=== PATIENT | female | born 1960 | race Caucasian/White ===

== ENCOUNTER 2018-11-01 21:24 | Emergency (ER) | END 2018-11-01 23:40 | disposition left against medical advice (07) | LOC: ER 21:24 | DX: Z53.21 Procedure and treatment not carried out due to patient leaving prior to being seen by health care provider (principal) ==

== ENCOUNTER 2019-09-29 11:19 | Emergency (ER) | payer SELFPAY ==
[2019-09-29] MEDS ORDERED: CETIRIZINE 10 MG TABLET PO ONE (11:55)
[2019-09-29] MEDS ORDERED: IBUPROFEN 600 MG TABLET PO ONE (11:55)
[2019-09-29] MEDS ORDERED: ACETAMINOPHEN 325 MG TABLET PO ONE (11:55)
--- NOTE | 2019-09-29 12:10 | ER Document Report ---
HPI - HPI Time Seen by Provider: 09/29/19 11:49 Pain Level: 5 Context: Patient is a 58-year-old female who presents to the emergency department for generalized not feeling well. Patient states that she has not felt well for the past 3 days. She also had a fever yesterday. States it was 102. Patient has not received a flu vaccine this year. Patient was taking [id number] medications, but had little relief of her symptoms. - ROS Systems Reviewed and Negative: Yes All other systems reviewed and negative - CONSTITUTIONAL Constitutional: REPORTS: Chills - RESPIRATORY Respiratory: REPORTS: Trouble Breathing, Coughing - REPRODUCTIVE Reproductive: DENIES: : - MUSCULOSKELETAL Musculoskeletal: DENIES: Extremity pain - DERM Skin Color: Normal Skin Problems: None Past Medical History - Social History Smoking Status: Current Every Day Smoker Frequency of alcohol use: None Drug Abuse: None Family History: Reviewed & Not Pertinent Patient has suicidal ideation: No Patient has homicidal ideation: No Vertical Provider Document - CONSTITUTIONAL Agree With Documented VS: Yes Exam Limitations: No Limitations General Appearance: No Apparent Distress - INFECTION CONTROL TRAVEL OUTSIDE OF THE [place] IN LAST 30 DAYS: No - HEENT HEENT: Atraumatic, Normocephalic, PERRLA - RESPIRATORY Respiratory: No Respiratory Distress, Rhonchi - Right upper lobe - CARDIOVASCULAR Cardiovascular: Regular Rate, Regular Rhythm Pulses: Normal: Radial - GI/ABDOMEN Gastrointestinal: Abdomen Soft, Abdomen Non-Tender - MUSCULOSKELETAL/EXTREMETIES Musculoskeletal/Extremeties: FROM - NEURO Level of Consciousness: Awake, Alert, Appropriate Motor/Sensory: No Motor Deficit, No Sensory Deficit - DERM Integumentary: Warm, Dry, No Rash Course - Re-evaluation Re-evalutation: 09/29/19 13:20 Patient's chest x-ray shows pneumonia. Influenza test is negative. Patient will be started on doxycycline. His vital signs are normal. I have a very low suspicion for sepsis. Follow-up precautions were given. Verbal discharge instructions were given to the patient. They verbalized understanding. They are stable for discharge. - Vital Signs Vital signs: Temp Pulse Resp BP Pulse Ox 98.1 F 96 20 136/86 H 96 09/29/19 11:44 09/29/19 11:44 09/29/19 11:44 09/29/19 11:44 09/29/19 11:44 Discharge - Discharge Clinical Impression: Pneumonia Qualifiers: Pneumonia type: due to unspecified organism Laterality: right Lung location: upper lobe of lung Qualified Code(s): J18.9 - Pneumonia, unspecified organism Condition: Stable Disposition: HOME, SELF-CARE Additional Instructions: You have been diagnosed with a pneumonia. It is very important that you take all of your antibiotics until they are gone even if you are feeling better. Please return to the emergency department immediately if you began having worsening shortness of breath, become confused, have worsening pain, pass out, have persistent vomiting that prevents you from being able to drink fluids for more than 12 hours, or have any other symptoms that are worrisome to you. Please follow-up with your primary care doctor in the next 1-2 days. Prescriptions: Doxycycline Hyclate 100 mg PO BID 7 Days #14 tablet.dr Forms: Return to Work
[2019-09-29 12:38] LABS: A TYPE INFLUENZA AG NEGATIVE (NEGATIVE); B INFLUENZA AG NEGATIVE (NEGATIVE)
--- NOTE | 2019-09-29 12:49 | RADIOLOGY REPORT (SQ) ---
EXAM DESCRIPTION: CHEST 2 VIEWS COMPLETED DATE/TIME: 09/29/2019 12:13 pm REASON FOR STUDY: shortness of breath COMPARISON: PA and lateral views of the chest from 01/24/2017 EXAM PARAMETERS: NUMBER OF VIEWS: Two views. TECHNIQUE: PA and lateral views of the chest were obtained.. RADIATION DOSE: NA LIMITATIONS: none FINDINGS: LUNGS AND PLEURA: Asymmetric opacity in the right suprahilar region. There is no sizable pleural effusion or pneumo MEDIASTINUM AND HILAR STRUCTURES: No mediastinal or hilar contour abnormality. HEART AND VASCULAR STRUCTURES: The cardiac silhouette and pulmonary vasculature are within normal lee its. BONES: No acute findings. HARDWARE: None in the chest. OTHER: No other finding. IMPRESSION: Asymmetric opacity in the right suprahilar region. The opacity could represent a a righ t upper lobe pneumonia and radiographic follow-up to resolution is recommended TECHNICAL DOCUMENTATION: JOB ID: [id number] 2010 [employer]- All Rights Reserved Reading location - IP/workstation name: [email or web address]
[2019-09-29 13:43] VITALS: BP 125/85
== END 2019-09-29 13:45 | disposition home or self-care (01) ==
LOC: ER 11:19
DX: J18.9 Pneumonia, unspecified organism (principal); R50.9 Fever, unspecified; F17.200 Nicotine dependence, unspecified, uncomplicated
CPT/HCPCS: 71046; 87804; 99285

== ENCOUNTER 2019-10-29 16:56 | Emergency (ER) | payer SELFPAY ==
--- NOTE | 2019-10-29 17:27 | RADIOLOGY REPORT (SQ) ---
EXAM DESCRIPTION: CHEST SINGLE VIEW COMPLETED DATE/TIME: 10/29/2019 5:18 pm REASON FOR STUDY: cough COMPARISON: 09/29/2019 EXAM PARAMETERS: NUMBER OF VIEWS: One view. TECHNIQUE: Single frontal radiographic view of the chest acquired. RADIATION DOSE: NA LIMITATIONS: None. FINDINGS: LUNGS AND PLEURA: Increased opacification in the right upper lobe extending from the right hilum. MEDIASTINUM AND HILAR STRUCTURES: No masses. Contour normal. HEART AND VASCULAR STRUCTURES: Heart normal in size. Normal vasculature. BONES: No acute findings. HARDWARE: None in the chest. OTHER: No other significant finding. IMPRESSION: Right upper lobe pneumonia. Recommend follow-up after treatment to be certain that ther e is no hilar mass. TECHNICAL DOCUMENTATION: JOB ID: [id number] 2010 [employer]- All Rights Reserved Reading location - IP/workstation name: [email or web address]
[2019-10-29 17:43] LABS: A TYPE INFLUENZA AG NEGATIVE (NEGATIVE); B INFLUENZA AG NEGATIVE (NEGATIVE)
[2019-10-29] MEDS ORDERED: PIPERACILLIN/TAZOBACTAM 3.375 GM VIAL IV ONE (18:04)
[2019-10-29] MEDS ORDERED: VANCOMYCIN HCL INJ 1000 MG VIAL IV ONE (18:05)
--- NOTE | 2019-10-29 18:15 | ER Document Report ---
ED General - General TRAVEL OUTSIDE OF THE [place]. IN LAST 30 DAYS: No <PAO RUFF - Last Filed: 10/29/19 18:36> <JEMIMADOROTEO Muir - Last Filed: 10/29/19 20:34> - General Chief Complaint: Cough Stated Complaint: COUGH Time Seen by Provider: 10/29/19 17:45 - HPI Notes: Chief complaint: Cough and shortness of breath 58-year-old female seen here 1 month ago diagnosed with pneumonia and treated with a course of oral doxycycline which she completed now returning with increasing cough, shortness of breath weight loss and malaise. Patient smokes approximately three quarters of a pack of cigarettes per day all of her adult life. 10 pound weight loss within the last month. Yellow sputum. No hemoptysis. Denies chest pain. Progressively dyspneic on exertion. Chest x-ray from prior visit showed patchy right perihilar infiltrate. Patient denies past history of pneumonia. No regular medications. No known allergies. (PAO RUFF) - Related Data Allergies/Adverse Reactions: No Known Allergies Allergy (Verified 10/29/19 17:09) Past Medical History - General Information source: Patient - Social History Smoking Status: Current Every Day Smoker Lives with: Alone Family History: Reviewed & Not Pertinent Patient has suicidal ideation: No Patient has homicidal ideation: No <PAO RUFF - Last Filed: 10/29/19 18:36> Review of Systems <PAO RUFF - Last Filed: 10/29/19 18:36> - Review of Systems Notes: Constitutional: Subjective fever. HENT: Negative for sore throat. Eyes: Negative for visual changes. Cardiovascular: Negative for chest pain. Respiratory: As per HPI. Gastrointestinal: Negative for abdominal pain, vomiting or diarrhea. Genitourinary: Negative for dysuria. Musculoskeletal: Negative for back pain. Skin: Negative for rash. Neurological: Negative for headaches, focal weakness or numbness. 10 point ROS negative except as marked above and in HPI. (PAO RUFF) Physical Exam <PAO RUFF - Last Filed: 10/29/19 18:36> - Vital signs Vitals: Temp Pulse Resp BP Pulse Ox 98.6 F 93 19 128/75 H 99 10/29/19 17:13 10/29/19 17:13 10/29/19 17:13 10/29/19 17:13 10/29/19 17:13 - Notes Notes: GENERAL: Chronically ill-appearing female of approximately stated age with rattling cough. SKIN: Warm and mildly diaphoretic. No rashes. HEAD: Bitemporal wasting noted. EYES: PERRLA. EOMI. Conjunctivae and sclerae clear. EARS: CANALS AND TMS CLEAR. NOSE: CLEAR. MOUTH: Moist mucosa. Good dentition. No stridor or edema. No drooling. NECK: Supple. No masses or thyromegaly. No adenopathy. Carotids 2+ without bruits. No JVD. BACK: Symmetrical without tenderness. CHEST: Respirations unlabored. Rattling cough. Coarse rhonchi right upper and middle lung vyas. HEART: Regular rhythm. No murmur gallop or rub. ABDOMEN: Soft nontender without masses, organomegaly or rebound. Bowel sounds normally active. No bruits. GENITALIA: Deferred. EXTREMITIES: 2+ clubbing upper extremity nailbeds. No edema. No calf tenderness. Cap refill less than 1.5 seconds. Dorsalis pedis and posterior tibial pulses 3+ and symmetrical. NEUROLOGICAL: GCS 15. Alert and oriented x3. Fluent speech. Cranial nerves II through XII intact. Sensorimotor and cerebellar normal. Normal tone. PSYCHIATRIC: Appropriate affect. (PAO RUFF) Course <PAO RUFF - Last Filed: 10/29/19 18:36> - Laboratory Result Diagrams: 10/29/19 18:30 10/29/19 18:30 <DOROTEO TINOCO JR - Last Filed: 10/29/19 20:34> - Re-evaluation Re-evalutation: 10/29/19 18:15 This lady has had progression of pneumonia on her chest x-ray. She clearly needs further evaluation with a contrast CT of the chest which has been ordered. I am going to empirically treat her as a healthcare associated pneumonia because of recent outpatient oral antibiotics. Blood cultures are drawn. Zosyn and vancomycin IV. 10/29/19 18:[address] of the chest remain pending at this time. Further care is turned over to Dr. Tinoco and patient will be admitted after pending studies have been completed. (PAO RUFF) - Vital Signs Vital signs: Temp Pulse Resp BP Pulse Ox 98.6 F 93 19 128/75 H 99 10/29/19 17:13 10/29/19 17:13 10/29/19 17:13 10/29/19 17:13 10/29/19 17:13 - Laboratory Laboratory results interpreted by me: 10/29/19 18:30 Sodium 134.4 L Critical Care Note - Critical Care Note Total time excluding time spent on procedures (mins): 90 <DOROTEO TINOCO JR - Last Filed: 10/29/19 20:34> - Critical Care Note Comments: CT scan was read by radiologist as large right hilar mass with postobstructive with right upper lobe pneumonia. This case was discussed with Dr. michael Ellis and he advised he will see this patient in office he will call her tomorrow after receiving a text with her telephone number and birthdate and name. I discussed the findings with the patient (DOROTEO TINOCO JR) Discharge <PAO RUFF - Last Filed: 10/29/19 18:36> <DOROTEO TINOCO JR - Last Filed: 10/29/19 20:34> - Discharge Clinical Impression: Large right hilar mass on CT chest Pneumonia Qualifiers: Pneumonia type: due to unspecified organism Laterality: right Lung location: unspecified part of lung Qualified Code(s): J18.9 - Pneumonia, unspecified organism Clinical Impression: (Ruled Out): Condition: Good Disposition: HOME, SELF-CARE Additional Instructions: Follow-up with Dr. Ellis oncologist as well as your personal doctor. We will write you for Levaquin antibiotic and Tessalon Perles but because of your chest mass you will need an oncologist. Return to ER as needed. Take medicines as directed Prescriptions: Benzonatate [Tessalon Perles 100 mg Capsule] 100 mg PO Q8HP PRN #40 capsule PRN Reason: Levofloxacin [Levaquin 500 mg Tablet] 500 mg PO DAILY #10 tablet
[2019-10-29 18:52] LABS: ABSOLUTE LYMPHOCYTES (AUTO) 1.1 10^3/uL (0.5-4.7); ABSOLUTE MONOCYTES (AUTO) 0.6 10^3/uL (0.1-1.4); ABSOLUTE NEUT (AUTO) 5.8 10^3/uL (1.7-8.2); BASOPHILS % (AUTO) 0.5 % (0-2); EOSINOPHILS % (AUTO) 0.5 % (0-6); HEMATOCRIT 36.2 % (36.0-47.0); HEMOGLOBIN 12.6 g/dL (12.0-15.5); LYMPHOCYTES % (AUTO) 14.6 % (13-45); MEAN CORPUSCULAR HEMOGLOBIN 31.9 pg (27.0-33.4); MEAN CORPUSCULAR HGB CONC 34.7 g/dL (32.0-36.0); MEAN CORPUSCULAR VOLUME 92 fl (80-97); MONOCYTES % (AUTO) 8.1 % (3-13); PLATELET COUNT 284 10^3/uL (150-450); RED BLOOD COUNT 3.94 10^6/uL (3.72-5.28); RED CELL DISTRIBUTION WIDTH 11.9 % (11.5-14.0); SEGMENTED NEUTROPHILS % (AUTO) 76.3 % (42-78); TOTAL CELLS COUNTED % (AUTO) 100 %; WHITE BLOOD COUNT 7.6 10^3/uL (4.0-10.5)
[2019-10-29 19:11] LABS: ALBUMIN 3.6 g/dL (3.5-5.0); ALKALINE PHOSPHATASE 85 U/L (38-126); ASPARTATE AMINO TRANSFERASE 28 U/L (14-36); BILIRUBIN,DIRECT 0.2 mg/dL (0.0-0.4); BILIRUBIN,TOTAL 0.4 mg/dL (0.2-1.3); BLOOD UREA NITROGEN 13 mg/dL (7-20); CALCIUM 9.1 mg/dL (8.4-10.2); GLUCOSE 98 mg/dL (75-110); TOTAL PROTEIN 6.9 g/dL (6.3-8.2)
[2019-10-29 19:21] LABS: POTASSIUM 4.4 mmol/L (3.6-5.0)
[2019-10-29 19:25] LABS: ANION GAP 5 (5-19); CARBON DIOXIDE 27 mmol/L (22-30); CHLORIDE 102 mmol/L (98-107)
--- NOTE | 2019-10-29 20:08 | RADIOLOGY REPORT (SQ) ---
EXAM DESCRIPTION: CT CHEST WITH COMPLETED DATE/TIME: 10/29/2019 7:54 pm REASON FOR STUDY: Pneumonia worsening, weight loss COMPARISON: None. TECHNIQUE: CT scan of the chest performed using helical scanning technique with dynamic intravenous contrast injection. Images reviewed with lung, soft tissue and bone windows. Reconstructed coronal and sagittal MPR and MIP images reviewed. All images stored on PACS. All CT scanners at this facility use dose modulation, iterative reconstruction, and/or weight based d osing when appropriate to reduce radiation dose to as low as reasonably achievable (ALARA). [facility]: Dose Right [facility]: CareDose [facility]: Dose Right [facility]: Teradose 4D [facility]: [employer] CONTRAST TYPE AND DOSE: contrast/concentration: Isovue 350.00 mg/ml; Total Contrast Delivered: 80.0 ml; Total Saline Delivered: 54.2 ml RENAL FUNCTION: BUN 13 creatinine 0.57 RADIATION DOSE: CT Rad equipment meets quality standard of care and radiation dose reduction techniq ues were employed. CTDIvol: 4.8 mGy. DLP: 191 mGy-cm. . LIMITATIONS: None. FINDINGS: LUNGS AND PLEURA: There is dense, masslike opacification in the right upper lobe extending from the right hilum. Cannot exclude some small satellite nodules around this area. HILAR AND MEDIASTINAL STRUCTURES: There is a mass extending from the mediastinum confluent with the r ight hilum. HEART AND VASCULAR STRUCTURES: No aneurysm or dissection. No central pulmonary emboli. No pericardi al effusion. HARDWARE: None in the chest. UPPER ABDOMEN: No significant findings. Limited exam. THYROID AND OTHER SOFT TISSUES: No masses. No adenopathy. BONES: No significant finding. OTHER: No other significant finding. IMPRESSION: Large right hilar/ mediastinal mass with postobstructive pneumonia with consolidation in the right upper lobe. There may be some small pulmonary nodules in the right upper lobe. TECHNICAL DOCUMENTATION: JOB ID: [id number] Quality ID # [id number]: Final reports with documentation of one or more dose reduction techniques (e.g., Au tomated exposure control, adjustment of the mA and/or kV according to patient size, use of iterative reconstruction technique) 2010 [employer]- All Rights Reserved Reading location - IP/workstation name: [email or web address]
[2019-10-29] MEDS ORDERED: DEXAMETHASONE SOD PHOS INJ 10 MG/1 ML VIAL IV ONE (20:42)
[2019-10-29 21:26] VITALS: BP 108/67
[2019-10-29] MEDS ORDERED: ACETAMINOPHEN 325 MG TABLET PO ONE (21:31)
== END 2019-10-29 21:46 | disposition home or self-care (01) ==
LOC: ER 16:56
DX: J18.9 Pneumonia, unspecified organism (principal); R91.8 Other nonspecific abnormal finding of lung field; R05 Cough; R06.02 Shortness of breath; F17.210 Nicotine dependence, cigarettes, uncomplicated
CPT/HCPCS: 99291; 99292; 96375; 96365; 96366; 96367; 36415; 87040; 87070; 87880; 83735; 85025; 80053; 87804; 71045; 71260; J3370; J1100; J2543

== ENCOUNTER 2019-11-16 20:51 | Inpatient (IN) | payer SELFPAY ==
[2019-11-16] MEDS ORDERED: KETOROLAC TROMETHAMINE INJ/PF 30 MG/1 ML SDV IV ONE (21:06)
--- NOTE | 2019-11-16 21:09 | ER Document Report ---
ED Medical Screen (RME) - General Stated Complaint: RIGHT BREAST PAIN Time Seen by Provider: 11/16/19 21:05 Primary Care Provider: JESSICA PRESSLEY MD [Primary Care Provider] - Follow up as needed Notes: HPI: 58-year-old female presenting to the emergency department complaining of worsening right-sided chest pain. Patient states she was diagnosed with pneumonia a month ago and also with a right lung mass. Patient was placed on Augmentin but states she is still having the pain across the chest wall. No fever. States it worsened over the last 4 days. Has not had a fever in the last for 5 days. I have greeted and performed a rapid initial assessment of this patient. A comprehensive ED assessment and evaluation of the patient, analysis of test results and completion of the medical decision making process will be conducted by additional ED providers PHYSICAL EXAMINATION: With female nurse present the patient expressed a desire to expose the chest wall for examination in triage. There is no visible erythema to the chest wall on the right side. There is no definitive palpable lump but there is moderate tenderness to the upper aspect of the right breast into the lateral aspect of the right axilla. Breasts appear symmetric. Patient is not tachycardic. Lung sounds decreased in the right lung I have greeted and performed a rapid initial assessment of this patient. A comprehensive ED assessment and evaluation of the patient, analysis of test results and completion of medical decision making process will be conducted by an additional ED providers. TRAVEL OUTSIDE OF THE [place] IN LAST 30 DAYS: No - Related Data Allergies/Adverse Reactions: No Known Allergies Allergy (Verified 10/29/19 17:09) Physical Exam - Vital signs Vitals: Temp Pulse Resp BP Pulse Ox 99.5 F 104 H 16 118/73 94 11/16/19 20:54 11/16/19 20:54 11/16/19 20:54 11/16/19 20:54 11/16/19 20:54 Course - Vital Signs Vital signs: Temp Pulse Resp BP Pulse Ox 99.5 F 104 H 16 118/73 94 11/16/19 20:54 11/16/19 20:54 11/16/19 20:54 11/16/19 20:54 11/16/19 20:54 Doctor's Discharge - Discharge Referrals: JESSICA PRESSLEY MD [Primary Care Provider] - Follow up as needed
--- NOTE | 2019-11-16 22:00 | RADIOLOGY REPORT (SQ) ---
EXAM DESCRIPTION: X-RAY CHEST- One View CLINICAL HISTORY: Right-sided chest pain. COMPARISON: October 29, 2019 TECHNIQUE: Single view of the chest. FINDINGS: There is interval worsening of opacification involving the right upper and mid lung zones. There is interval retraction of the right hemidiaphragm with blunting of the right costophrenic angle. The pulmonary vascularity is normal. The cardiomediastinal silhouette is stable in size. Osseous structures are stable in appearance. IMPRESSION: Worsening of opacification involving the right upper and mid lung zones with interval blunting of the right costophrenic angle and retraction of the right hemidiaphragm.
[2019-11-16 22:30] LABS: ABSOLUTE EOSINOPHILS # (AUTO) 0.1 10^3/uL (0.0-0.6); ABSOLUTE LYMPHOCYTES (AUTO) 1.1 10^3/uL (0.5-4.7); ABSOLUTE MONOCYTES (AUTO) 0.5 10^3/uL (0.1-1.4); ABSOLUTE NEUT (AUTO) 6.5 10^3/uL (1.7-8.2); BASOPHILS % (AUTO) 0.4 % (0-2); EOSINOPHILS % (AUTO) 0.6 % (0-6); HEMATOCRIT 35.6 % (36.0-47.0); HEMOGLOBIN 12.5 g/dL (12.0-15.5); LYMPHOCYTES % (AUTO) 13.9 % (13-45); MEAN CORPUSCULAR HEMOGLOBIN 31.1 pg (27.0-33.4); MEAN CORPUSCULAR VOLUME 89 fl (80-97); MONOCYTES % (AUTO) 5.9 % (3-13); PLATELET COUNT 395 10^3/uL (150-450); RED BLOOD COUNT 4.01 10^6/uL (3.72-5.28); RED CELL DISTRIBUTION WIDTH 12.1 % (11.5-14.0); SEGMENTED NEUTROPHILS % (AUTO) 79.2 % (42-78); TOTAL CELLS COUNTED % (AUTO) 100 %; WHITE BLOOD COUNT 8.2 10^3/uL (4.0-10.5)
[2019-11-16 22:31] LABS: ALBUMIN 3.2 g/dL (3.5-5.0); ALKALINE PHOSPHATASE 83 U/L (38-126); ANION GAP 5 (5-19); ASPARTATE AMINO TRANSFERASE 28 U/L (14-36); BILIRUBIN,TOTAL 0.4 mg/dL (0.2-1.3); BLOOD UREA NITROGEN 16 mg/dL (7-20); CALCIUM 8.8 mg/dL (8.4-10.2); CARBON DIOXIDE 27 mmol/L (22-30); CHLORIDE 103 mmol/L (98-107); GLUCOSE 102 mg/dL (75-110); POTASSIUM 4.6 mmol/L (3.6-5.0); TOTAL PROTEIN 6.4 g/dL (6.3-8.2)
[2019-11-16] MEDS ORDERED: NORMAL SALINE 1000 ML 1,000 ML IV ONE (23:05)
--- NOTE | 2019-11-16 23:09 | ER Document Report ---
ED General - General Chief Complaint: Chest Pain Stated Complaint: RIGHT BREAST PAIN Time Seen by Provider: 11/16/19 21:05 Primary Care Provider: JESSICA ELLIS MD [Primary Care Provider] - Follow up as needed Mode of Arrival: Ambulatory Information source: Patient Notes: Mccrary triage note HPI: 58-year-old female presenting to the emergency department complaining of worsening right-sided chest pain. Patient states she was diagnosed with pneumonia a month ago and also with a right lung mass. Patient was placed on Augmentin but states she is still having the pain across the chest wall. No fever. States it worsened over the last 4 days. Has not had a fever in the last for 5 days. My note; 58-year-old female arrives with increasing right upper chest referred to right upper back pain. This is been going on since x3 days. Patient was diagnosed on 28 October with post obstructional pneumonia with lung mass. Patient has been taking Augmentin as written by Dr. Ellis.. Patient reports she had a 10 pound weight loss since early September when she began to have a productive persistent cough and was taking doxycycline as prescribed by her personal doctor. She had increased cough and shortness of breath and therefore saw Dr. Johnson on 28 October. I followed up on this case after Dr. Johnson left and her CT of chest revealed right hilar mass post obstructional pneumonia. I placed her on Levaquin and Tessalon Perles. She saw the oncologist as scheduled. She tried to reach him on and Sunday but were unable to reach him by phone. Patient has been a cigarette smoker throughout her life 1 pack/day. Chest x-ray today reveals a worsening of the right upper lobe pneumonia per radiology TRAVEL OUTSIDE OF THE [place] IN LAST 30 DAYS: No - HPI Onset: Just prior to arrival Onset/Duration: Sudden Quality of pain: Achy Severity: Moderate Pain Level: 2 Associated symptoms: Shortness of breath Exacerbated by: Movement, Coughing, Deep breathing Relieved by: Denies Similar symptoms previously: Yes Recently seen / treated by doctor: Yes - [facility] - Related Data Allergies/Adverse Reactions: No Known Allergies Allergy (Verified 10/29/19 17:09) Past Medical History - General Information source: Patient - Social History Smoking Status: Current Every Day Smoker Cigarette use (# per day): Yes Chew tobacco use (# tins/day): No Smoking Education Provided: Yes Frequency of alcohol use: None Drug Abuse: None Lives with: Family Family History: Reviewed & Not Pertinent Patient has suicidal ideation: No Patient has homicidal ideation: No Review of Systems - Review of Systems Constitutional: No symptoms reported EENT: No symptoms reported Cardiovascular: No symptoms reported Respiratory: No symptoms reported Gastrointestinal: No symptoms reported Genitourinary: No symptoms reported Female Genitourinary: No symptoms reported Musculoskeletal: No symptoms reported Skin: No symptoms reported Hematologic/Lymphatic: No symptoms reported Neurological/Psychological: No symptoms reported Physical Exam - Vital signs Vitals: Temp Pulse Resp BP Pulse Ox 99.5 F 104 H 16 118/73 94 11/16/19 20:54 11/16/19 20:54 11/16/19 20:54 11/16/19 20:54 11/16/19 20:54 Interpretation: Tachycardic - General General appearance: Alert - HEENT Head: Normocephalic Eyes: Normal Conjunctiva: Normal Cornea: Normal Extraocular movements intact: Yes Eyelashes: Normal Pupils: PERRL Sinus: Normal Nasal: Normal Mouth/Lips: Normal Mucous membranes: Dry Pharynx: Normal Neck: Normal - Respiratory Respiratory status: No respiratory distress Chest status: Tender - Right upper chest pain on palpation as well as right supraspinatus pain on palpation - Cardiovascular Rhythm: Tachycardia Heart sounds: Normal auscultation Murmur: No Friction rub: No Tono's crunch: No - Abdominal Inspection: Normal Distension: No distension Bowel sounds: Normal Tenderness: Nontender Organomegaly: No organomegaly - Back Back: Tender - right upper back pain on p/p - Extremities General upper extremity: Normal inspection General lower extremity: Normal inspection - Neurological Neuro grossly intact: Yes Cognition: Normal Orientation: AAOx4 [place] Coma Scale Eye Opening: Spontaneous Malina Coma Scale Verbal: Oriented Malina Coma Scale Motor: Obeys Commands [place] Coma Scale Total: 15 Speech: Normal Cranial nerves: Normal Cerebellar coordination: Normal Motor strength normal: LUE, RUE, LLE, RLE - Psychological Associated symptoms: Normal affect - Skin Skin Temperature: Warm Skin Moisture: Dry Course - Vital Signs Vital signs: Temp Pulse Resp BP Pulse Ox 99.5 F 104 H 24 H 102/76 97 11/16/19 20:54 11/16/19 20:54 11/17/19 01:00 11/17/19 00:00 11/17/19 01:00 - Laboratory Result Diagrams: 11/16/19 21:54 11/16/19 21:54 Laboratory results interpreted by me: 11/16/19 11/16/19 21:54 21:54 Hct 35.6 L Seg Neutrophils % 79.2 H Sodium 134.8 L Albumin 3.2 L - Diagnostic Test Radiology reviewed: Reports reviewed Radiology results interpreted by me: 11/17/19 01:34 See radiology note with 15 x 16 sonometer mass right upper lobe - EKG Interpretation by Me EKG shows normal: Sinus rhythm Rate: Normal Critical Care Note - Critical Care Note Total time excluding time spent on procedures (mins): 90 Comments: I discussed this case with Dr. Owusu at 0 125 and he advises he will see the patient in her room. Also went to the CT room in order to establish a radiologist read on the scan that was taken around 2300 Discharge - Discharge Clinical Impression: Mass of right lung Pneumonia Qualifiers: Pneumonia type: due to unspecified organism Laterality: right Lung location: upper lobe of lung Qualified Code(s): J18.9 - Pneumonia, unspecified organism Condition: Fair Disposition: ADMITTED INPATIENT Admitting Provider: Zoie (Hospitalist) Unit Admitted: Medical Floor Additional Instructions: Transfer patient to upstairs room Referrals: JESSICA ELLIS MD [Primary Care Provider] - Follow up as needed
[2019-11-16] MEDS ORDERED: PIPERACILLIN/TAZOBACTAM 3.375 GM VIAL IV ONE (23:22)
[2019-11-16] MEDS ORDERED: VANCOMYCIN HCL INJ 1000 MG VIAL IV ONE (23:22)
--- NOTE | 2019-11-17 01:29 | RADIOLOGY REPORT (SQ) ---
EXAM DESCRIPTION: CT CHEST ANGIOGRAPHY WITHOUT THEN WITH IV CONTRAST COMPLETED DATE/TME: 11/16/2019 23:04 CLINICAL HISTORY: 58 years Female, pain Comparison: 10/29/2019. CR, 11/16/19. Technique: IV contrast. Coronal and sagittal reformat. 3d reconstruction. This exam was performed according to our departmental dose-optimization program, which includes automated exposure control, adjustment of the mA and/or kV according to patient size and/or use of iterative reconstruction technique.[facility]: Dose Right [facility]: CareDose [facility]: Dose Right [facility]: Teradose 4D [facility]: [employer] LIMITATIONS: Quality of pulmonary arteriogram: Suboptimal. Findings: 15 x 16 x 12 cm solid enhancing consolidative mass encases and narrows the right hilar structures and involves the mediastinum. Moderate to severe mediastinal and right hilar lymphadenopathy. Right pulmonary nodules include a 0.6 cm nodule at the right lower lobe. There is significant mass effect and right hilar and mediastinal structures including severe compression of the right SVC and right pulmonary arterial branches. Moderate right pleural effusion. Likely benign, low-attenuation hepatic lesion(s) not definitively characterized. No pulmonary embolus. No right ventricular strain. Inferior neck, axillae, airway, heart, vasculature, upper abdomen, and musculoskeleton appear otherwise unremarkable. Impression: 16 cm right upper lobar and mediastinal pulmonary mass suggestive of malignancy. Right pulmonary nodule. Lymphadenopathy. There is significant mass effect and right hilar and mediastinal structures including severe compression of the right SVC and right pulmonary arterial branches. Interval worsening. Differential etiologies include infectious, inflammatory, and neoplastic processes. Consider tissue sampling and CT-PET surveillance.
[2019-11-17] MEDS ORDERED: DEXAMETHASONE SOD PHOS INJ 10 MG/1 ML VIAL IV ONE (01:34)
[2019-11-17] MEDS ORDERED: ACETAMINOPHEN 325 MG TABLET PO PRN (03:05)
[2019-11-17] MEDS ORDERED: ONDANSETRON HCL INJ/PF 4 MG/2 ML SDV IV PRN (03:05)
[2019-11-17] MEDS ORDERED: TRAMADOL HCL 50 MG TABLET PO PRN (03:05)
[2019-11-17] MEDS ORDERED: MAGNESIUM HYDROXIDE SUSP 30 ML UDCUP PO PRN (03:05)
[2019-11-17] MEDS ORDERED: IPRATROPIUM/ALBUTEROL 0.5-2.5 MG/3 ML AMPUL NEB PRN (03:05)
[2019-11-17] MEDS ORDERED: MAG HYDROX/AL HYDROX/SIMETH SUSP 30 ML UDCUP PO PRN (03:05)
[2019-11-17] MEDS ORDERED: ONDANSETRON 4 MG TAB.RAPDIS PO PRN (03:05)
[2019-11-17] MEDS ORDERED: DRONABINOL 2.5 MG CAPSULE PO PRN (03:17)
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
[2019-11-17] MEDS ORDERED: PIPERACILLIN/TAZOBACTAM 4.5 GM VIAL IV PRN (03:33)
[2019-11-17] MEDS ORDERED: NICOTINE 14 MG/24 HR PATCH.TD24 TD PRN (03:38)
[2019-11-17] MEDS: KETOROLAC TROMETHAMINE INJ/PF 30 MG/1 ML SDV IV PRN ×2 (03:56→13:07)
[2019-11-17] MEDS: NORMAL SALINE 1000 ML 1,000 ML IV PRN ×2 (03:58→13:01)
[2019-11-17] MEDS ORDERED: PIPERACILLIN/TAZOBACTAM 4.5 GM VIAL IV ONE (04:00)
[2019-11-17] MEDS: PIPERACILLIN SODIUM/TAZOBACTAM 4.5 GM in NORMAL SALINE 100 ML IV SCH ×2 (06:01→13:01)
[2019-11-17] MEDS: HEPARIN SOD (PORCINE) 5,000 UNIT/ML 1 ML VIAL SUBCUT SCH ×2 (06:01→15:09)
[2019-11-17 06:49] LABS: BLOOD UREA NITROGEN 15 mg/dL (7-20); CALCIUM 8.4 mg/dL (8.4-10.2); CHLORIDE 106 mmol/L (98-107); GLUCOSE 109 mg/dL (75-110); POTASSIUM 4.6 mmol/L (3.6-5.0)
[2019-11-17 06:54] LABS: CARBON DIOXIDE 26 mmol/L (22-30)
[2019-11-17 07:00] LABS: ANION GAP 4 (5-19)
[2019-11-17] MEDS ORDERED: DOCUSATE SODIUM 100 MG CAPSULE PO SCH (10:00)
[2019-11-17] MEDS ORDERED: FAMOTIDINE 20 MG TABLET PO SCH (10:00)
--- NOTE | 2019-11-17 12:36 | Progress Note ---
Provider Note Provider Note: Hematology/Oncology consultation was received by Dr. Mcintyre. Due to COVID-19 restrictions, I have not met this patient yet. Her chart was reviewed and I discussed her care with Nicholas in the interventional radiology department as well as Dr. Mcintyre. I do not yet have any path or definitive diagnosis of her lung tumor. Bronchoscopy with biopsy has been recommended, however, due to the location of the tumor, I do not believe that it is safe to perform this [facility]. I would recommend consulting Thoracic surgery/Pulmonary at [facility] or other tertiary center to see if they can obtain tissue biopsy for diagnosis. I do not believe her fever or infection will clear until the mass has been treated. Dr. Mcintyre agrees with recommendation for transfer. I am happy to see her at any time, but have little to offer until after tissue diagnosis is obtained.
--- NOTE | 2019-11-17 13:55 | PDOC TRANSFER SUMMARY ---
General Admission Date/PCP: 11/17/19 01:56 JESSICA PRESSLEY MD Admission Date: 11/17/19 Transfer Date: 11/17/19 Accepting Facility: [facility] Accepting Physician: Dr. Filemon Beltran Resuscitation Status: Full Code - Transfer Diagnosis (1) Mass of right lung Is this a current diagnosis for this admission?: Yes (2) Postobstructive pneumonia Is this a current diagnosis for this admission?: Yes (3) Pleuritic chest pain Is this a current diagnosis for this admission?: Yes (4) SVC syndrome Is this a current diagnosis for this admission?: Yes - Transfer Medications Home Medications: No Home Medications 11/17/19 Transfer Medications: Current Medications Acetaminophen (Tylenol 325 Mg Tablet) 650 mg PO Q4HP PRN PRN Reason: FOR PAIN OR TEMP Stop: 12/17/19 03:04 Al Hydrox/Mg Hydrox/Simethicone (Maalox Plus Susp 30 Udcup) 30 ml PO Q6HP PRN PRN Reason: HEARTBURN Stop: 12/17/19 03:04 Albuterol/Ipratropium (Duoneb 3 Ml Ampul) 3 ml NEB RTQ4HP PRN PRN Reason: SHORTNESS OF BREATH Stop: 12/17/19 03:04 Last Admin: 11/17/19 08:45 Dose: 3 ml Documented by: Docusate Sodium (Colace 100 Mg Capsule) 100 mg PO BID [facility] Stop: 12/17/19 09:59 Last Admin: 11/17/19 09:13 Dose: 100 mg Documented by: Dronabinol (Marinol 2.5 Mg Capsule) 2.5 mg PO Q6HP PRN PRN Reason: APPETITE STIMULATION Stop: 11/24/19 03:16 Famotidine (Pepcid 20 Mg Tablet) 20 mg PO Q12 [facility] Stop: 12/17/19 09:59 Last Admin: 11/17/19 09:13 Dose: 20 mg Documented by: Heparin Sodium (Porcine) (Heparin Inj 5,000 Units/Ml 1 Ml Vial) 5,000 unit S UBCUT Q8 AMA Stop: 12/17/19 05:59 Last Admin: 11/17/19 06:01 Dose: 5,000 unit Documented by: Piperacillin Sod/Tazobactam (Sod 4.5 gm/ Sodium Chloride) 100 mls @ 200 mls/hr IV Q6 AMA Stop: 11/24/19 05:59 Last Admin: 11/17/19 13:01 Dose: 200 ml/hr, 200 mls/hr Documented by: Ketorolac Tromethamine (Toradol Inj/Pf 30 Mg/1 Ml Sdv) 15 mg IV Q6HP PRN PRN Reason: FOR PAIN SCALE 3-5 Stop: 11/22/19 03:04 Last Admin: 11/17/19 13:07 Dose: 15 mg Documented by: Magnesium Hydroxide (Milk Of Magnesia 30 Ml Udcup) 30 ml PO HSP PRN PRN Reason: FOR CONSTIPATION Stop: 12/17/19 03:04 Nicotine (Nicoderm 14 Mg/24 Hr Transdermal Patch) 1 each TD DAILYP PRN PRN Reason: WITHDRAWAL SYMPTOMS Stop: 12/17/19 03:37 Last Admin: 11/17/19 06:00 Dose: 1 each Documented by: Ondansetron HCl (Zofran Inj/Pf 4 Mg/2 Ml Sdv) 4 mg IV Q4HP PRN PRN Reason: FOR NAUSEA/VOMITING Stop: 12/17/19 03:04 Ondansetron HCl (Zofran Odt 4 Mg Tablet) 4 mg PO Q4HP PRN PRN Reason: FOR NAUSEA/VOMITING Stop: 12/17/19 03:04 Sodium Chloride (Saline Flush 2.5 Ml Monoject Prefil Syrin) 2.5 ml IV Q8 [facility] Stop: 12/17/19 05:59 Last Admin: 11/17/19 06:02 Dose: Not Given Documented by: Tramadol HCl (Ultram 50 Mg Tablet) 50 mg PO Q4HP PRN PRN Reason: FOR PAIN SCALE 3-5 Stop: 11/24/19 03:04 - Allergies Allergies/Adverse Reactions: No Known Allergies Allergy (Verified 10/29/19 17:09) Hospital Course Hospital Course: Patient was admitted for evaluation of right-sided pleuritic chest pain, fever and increased shortness of breath. Chest CTA was performed which revealed a large right lung mass measuring 16 cm with severe compressive effect on the right SVC and right pulmonary artery as well as notable postobstructive pneumonia. No other infiltrates noted. Patient is stable on room air maintaining SPO2 in the high 90s. Soft blood pressures with systolic in the 90s but comfortable. Patient was started on broad-spectrum IV antibiotics for treatment of a postobstructive pneumonia. Blood cultures were obtained. Regarding patient's right lung mass, she recently learned about this finding last month and is yet to have her first meeting with her oncologist. She was scheduled to follow-up with Dr. Pressley (partners with Dr. Tse) but has not yet had her first official visit. I discussed with Dr. Tse this morning regarding plan for treatment and she informed me that patient has not had tissue biopsy yet to determine type of malignancy and this will need to be done before proceeding with radiation and chemo. Discussed with IR who recommended bronchoscopy for biopsy. Will also need to address patient's SVC syndrome. [facility] I will have our oncologist Dr. Tse reach out to the thoracic oncologist to discuss further plans for addressing patient's likely lung malignancy. Physical Exam Vital Signs: Temp Pulse Resp BP Pulse Ox 98.3 F 81 16 96/58 L 94 11/17/19 08:00 11/17/19 08:45 11/17/19 08:45 11/17/19 08:00 11/17/19 08:45 Intake & Output 11/16/19 11/17/19 11/18/19 06:59 06:59 06:59 Intake Total 1350 1240 Output Total 325 Balance 1025 1240 Weight 44 kg 44 kg General appearance: PRESENT: no acute distress, cooperative Neck exam: PRESENT: JVD - mild Respiratory exam: PRESENT: crackles, decreased breath sounds, unlabored. ABSENT: accessory muscle use, retraction, tachypnea, wheezes Cardiovascular exam: PRESENT: RRR, +S1, +S2. ABSENT: tachycardia GI/Abdominal exam: PRESENT: soft. ABSENT: rebound, rigid, tenderness Neurological exam: PRESENT: alert, awake, oriented to person, oriented to place, oriented to time, oriented to situation Results Laboratory Results: 11/16/19 21:54 11/17/19 05:36 11/16/19 11/16/19 11/17/19 21:54 21:54 05:36 WBC 8.2 RBC 4.01 Hgb 12.5 Hct 35.6 L MCV 89 MCH 31.1 MCHC 35.0 RDW 12.1 Plt Count 395 Seg Neutrophils % 79.2 H Sodium 134.8 L 135.9 L Potassium 4.6 4.6 Chloride 103 106 Carbon Dioxide 27 26 Anion Gap 5 4 L BUN 16 15 Creatinine 0.53 0.61 Est GFR ( Amer) > 60 > 60 Glucose 102 109 Calcium 8.8 8.4 Total Bilirubin 0.4 AST 28 Alkaline Phosphatase 83 Total Protein 6.4 Albumin 3.2 L Impressions: Chest X-Ray 11/16/19 21:06 IMPRESSION: Worsening of opacification involving the right upper and mid lung zones with interval blunting of the right costophrenic angle and retraction of the right hemidiaphragm. Plan Time Spent: Greater than 30 Minutes
--- NOTE | 2019-11-17 14:25 | ADVANCED CARE ---
- Diagnosis (1) Mass of right lung Diagnosis Current: Yes (2) Postobstructive pneumonia Diagnosis Current: Yes (4) SVC syndrome Diagnosis Current: Yes Attendance: Patient and myself Resuscitation Status: Full Code Discussion: We discussed patient's lung condition and the severity of her lung mass likely lung cancer which seems to be encroaching very vital structures making her high risk of serious complications including fatal bleeding if encroaches into the pulmonary artery further. Discussed that in the event of such an area where it becomes very difficult for patient to breathe, potential approach to the situation. Patient is okay with intubation in all scenarios when needed. Patient is a full code. Patient wants all needed aggressive measures to be t aking if any situation should warrant. Time Spent: 16 mins
[2019-11-17 15:39] VITALS: BP 99/65
== END 2019-11-17 15:45 | disposition short-term general hospital (02) | DRG 204 ==
LOC: ER 20:51 → EH 11-17 01:56 → 4S 11-17 03:35 → 3W 11-17 11:08
PROVIDERS: ADMIT Hospitalist; ATTEND Internal Medicine
DX: R91.8 Other nonspecific abnormal finding of lung field (principal); J18.9 Pneumonia, unspecified organism; I87.1 Compression of vein; R07.9 Chest pain, unspecified; R63.4 Abnormal weight loss; R11.2 Nausea with vomiting, unspecified; F17.210 Nicotine dependence, cigarettes, uncomplicated
CPT/HCPCS: 36415; 71046; 71275; 80048; 80053; 85025; 87040; 96361; 96365; 96375; 99291; 99292; A9270-GY; J1100; J1644; J1885; J2543; J3370; J7030; J7050; J7620

== ENCOUNTER → 2019-11-25 | Outpatient (CLI) | payer SELFPAY ==
--- NOTE | 2019-11-25 15:14 | RADIOLOGY REPORT (SQ) ---
EXAM DESCRIPTION: MRI HEAD COMBO IMAGES COMPLETED DATE/TIME: 11/25/2019 2:53 pm REASON FOR STUDY: (C34.11)MALIGNANT NEOPLASM OF UPPER LOBE, RIGHT BRONCHUS OR LUNG C34.11 MALIGNANT NEOPLASM OF UPPER LOBE, RIGHT BRONCHUS OR L COMPARISON: None. TECHNIQUE: Multiplanar imaging includes noncontrasted T1, T2, FLAIR, diffusion with ADC map and post gadolinium contrast T1 sequences. Images stored on PACS. CONTRAST TYPE AND DOSE: 10 mL Dotarem. RENAL FUNCTION: Not indicated. ACR Type II contrast agent associated with few, if any, unconfounded cases of NSF LIMITATIONS: Some sequences, particularly post-contrast, are up tube moderately limited by motion. FINDINGS: ANATOMY: No anomalies. Normal vascular flow voids. Pituitary fossa normal. CSF SPACES: Slight prominence of sulci and extra-axial fluid likely related atrophy. No hemorrhage o r mass or abnormal enhancement. CEREBRUM: Sulci and gyri normal in size and contour. Normal white matter signal on FLAIR imaging. No evidence of hemorrhage, mass, or extraaxial fluid collection. No abnormal enhancement post contrast. POSTERIOR FOSSA: No signal alteration. No hemorrhage. No edema, masses, or mass effect. Internal mick tory canals, cerebellopontine angles, mastoids normal. No enhancing lesions. No abnormal enhancement post contrast. DIFFUSION IMAGING: Negative for acute or subacute infarction. ORBITS: No masses. Globes normal. PARANASAL SINUSES: No fluid levels. Mucosa normal. OTHER: No other significant finding. IMPRESSION: 1. Moderately limited by motion. 2. No gross enhancing lesions to suggest metastatic disease. 3. Senescent changes, mild cerebral atrophy suggested. EVIDENCE OF ACUTE STROKE: NO. TECHNICAL DOCUMENTATION: JOB ID: [id number] [employer]- All Rights Reserved Reading location - IP/workstation name: [email or web address]
--- NOTE | 2019-11-25 16:14 | RADIOLOGY REPORT (SQ) ---
EXAM DESCRIPTION: PET CT SKULL/THIGH IMAGES COMPLETED DATE/TIME: 11/25/2019 3:06 pm REASON FOR STUDY: MALIGNANT NEOPLASM OF UPPER LOBE, RIGHT BRONCHUS OR LUNG C34.11 MALIGNANT NEOPLAS M OF UPPER LOBE, RIGHT BRONCHUS OR L COMPARISON: No prior pets. 11/17/2019 CT RADIONUCLIDE AND DOSE: 9.86 mCi F18 FDG The route of agent administration: Intravenous FASTING BLOOD SUGAR: 86 mg/dl CONTRAST TYPE AND DOSE: No CT contrast given. TECHNIQUE: Blood glucose level was verified. Above dose of FDG was injected intravenously. 2-D seg mented attenuation correction images were obtained from the base of the skull to the midthighs. Nonc ontrast CT images were obtained for attenuation correction and fusion with emission images. CT image s were performed without oral or intravenous contrast and are not sensitive for parenchymal lesions. A series of overlapping emission PET images were obtained. Images reviewed and manipulated at [facility] work station by the radiologist. Images stored on PACS. LIMITATIONS: None. FINDINGS: HEAD AND NECK: Hypermetabolic right supraclavicular soft tissue conglomerate measuring isabelle roximately 3.0 x 2.8 cm (series 3, image 34) (max SUV 11.3). No additional areas of abnormal uptake within the head and neck. CHEST: There is extension of the supraclavicular soft tissues within the superior anterior mediastinu m with extensive abnormal mediastinal hypermetabolic soft tissue which is poorly defined on this nonc ontrast scan (max SUV 15.2). Near complete opacification of the right upper and middle lobe with dif fuse abnormal uptake throughout (max SUV 18.5). Extensive right hilar soft tissue and avid FDG uptak e. Additional abnormal subcarinal hypermetabolic activity (max SUV 12.8) measuring approximately 3.5 x 3.6 cm. There are scattered additional foci of increased uptake within the right cardiophrenic re cess (max SUV 5.4) and along the right pleural surface. Moderate right-sided pleural effusion. Scat tered coronary atherosclerosis. ABDOMEN AND PELVIS: No areas of abnormal metabolic activity in the a bdomen or pelvis. Expected physiologic activity is present in the genitourinary system and bowel. PROXIMAL LOWER EXTREMITIES: Bony activity as below. No soft tissue areas of pathologic activity with in the visualized extremities. BONES: Scattered abnormal foci of increased uptake within multiple bones. For reference, there is a focus of increased uptake within the left scapula (max SUV 4.4), left midshaft femur (max SUV 12.1), right ilium (max SUV 5.9) and right sacrum (max SUV 4.6). Dysmorphic appearance of the right ilium l ikely related to remote trauma. Additional dysmorphic appearance of the left superior inferior pubic rami from remote trauma. ADDITIONAL CT FINDINGS: As above. OTHER: Background hepatic activity max SUV 1.9. IMPRESSION: 1. Large hypermetabolic mass predominantly involving the right upper and middle lobes w ith diffuse avid uptake (max SUV 18.5) compatible with malignancy. 2. Extensive right supraclavicular, mediastinal and right hilar hypermetabolic adenopathy compatible with metastatic disease. 3. Multifocal osseous metastatic deposits as detailed above (max SUV 12.1). 4. [id number] right-sided pleural effusion, increased from prior. TECHNICAL DOCUMENTATION: JOB ID: [id number] 2010 [employer]- All Rights Reserved Reading location - IP/workstation name: [email or web address]
== END ==
LOC: RAD 12:04
PROVIDERS: ATTEND Internal Medicine
DX: C34.11 Malignant neoplasm of upper lobe, right bronchus or lung (principal)
CPT/HCPCS: 70553; 78815; A9576; A9552

== ENCOUNTER 2019-11-26 10:53 | Outpatient (CLI) | payer SELFPAY ==
[~2019-11-26 10:53] MED LIST: ATEZOLIZUMAB 1,200 MG in NORMAL SALINE 250 ML IV PRN; CARBOPLATIN IV PRN; DEXAMETHASONE 10 MG in NS 50 ML IV PRN; ETOPOSIDE IV PRN; NORMAL SALINE 250 ML @ KVO IV PRN; NORMAL SALINE IV PRN; PALONOSETRON 0.25 MG/5 ML VIAL IV PRN
[2019-11-26 11:25] VITALS: BP 91/65
== END 2019-11-26 15:25 | disposition home or self-care (01) ==
LOC: II 10:53 → 5TH 10:56 → II 15:25
PROVIDERS: ATTEND Internal Medicine
DX: Z51.11 Encounter for antineoplastic chemotherapy (principal); C34.11 Malignant neoplasm of upper lobe, right bronchus or lung
CPT/HCPCS: 96413; 96367; 96375; 96417; J9045; J9181; J7050; J7040; J1100; J2469; J9022

== ENCOUNTER 2019-11-27 09:54 | Outpatient (CLI) | payer SELFPAY ==
[~2019-11-27 09:54] MED LIST changes: -ATEZOLIZUMAB 1,200 MG in NORMAL SALINE 250 ML IV PRN; -CARBOPLATIN IV PRN; -PALONOSETRON 0.25 MG/5 ML VIAL IV PRN
[2019-11-27 10:03] VITALS: BP 117/80
== END 2019-11-27 12:30 | disposition home or self-care (01) ==
LOC: II 09:54 → 5TH 09:57 → II 12:30
PROVIDERS: ATTEND Internal Medicine
DX: Z51.11 Encounter for antineoplastic chemotherapy (principal); C34.11 Malignant neoplasm of upper lobe, right bronchus or lung
CPT/HCPCS: 96413; 96367; J9181; J7040; J1100

== ENCOUNTER 2019-11-28 08:28 | Inpatient (IN) | payer SELFPAY ==
--- NOTE | 2019-11-28 09:17 | ER Document Report ---
ED Respiratory Problem - General Chief Complaint: Shortness Of Breath Stated Complaint: SHORTNESS OF BREATH Time Seen by Provider: 11/28/19 08:59 Notes: CHIEF COMPLAINT: Shortness of breath this morning HPI: 58-year-old female with history of metastatic stage IV lung cancer presenting for shortness of breath this morning. Patient states that she has had some shortness of breath intermittently but worse today. Patient follows with Dr. Ellis, Hematology. Patient had PET scan yesterday which showed large mass with pleural effusion in the right upper and middle lobes, metastatic bone cancer. Patient denies fever. ROS: See HPI - all other systems were reviewed and are otherwise negative Constitutional: no fever Eyes: no drainage, no blurred vision ENT: no runny nose, no sore throat Cardiovascular: no chest pain Resp: + SOB, no cough GI: no vomiting, no diarrhea, no abdominal pain : no dysuria Integumentary: no rash Allergy: no hives Musculoskeletal: no extremity pain or swelling Neurological: no numbness/tingling, no weakness MEDICATIONS: I agree with the patient medications as charted by the RN. ALLERGIES: I agree with the allergies as charted by the RN. PAST MEDICAL HISTORY/PAST SURGICAL HISTORY: Reviewed and agree as charted by RN. SOCIAL HISTORY: Reviewed and agree as charted by RN. FAMILY HISTORY: No significant familial comorbid conditions directly related to patient complaint EXAM: Reviewed vital signs as charted by RN. CONSTITUTIONAL: Alert and oriented and responds appropriately to questions. Well-appearing; well-nourished, mild distress secondary to shortness of breath HEAD: Normocephalic; atraumatic EYES: PERRL; Conjunctivae clear, sclerae non-icteric ENT: normal nose; no rhinorrhea; moist mucous membranes; pharynx without lesions noted, no uvula edema or deviation, no tonsillar hypertrophy, phonation normal NECK: Supple without meningismus; non-tender; no cervical lymphadenopathy, no masses CARD: RRR; no murmurs, no clicks, no rubs, no gallops; symmetric distal pulses RESP: Normal chest excursion without splinting. breath sounds with some rhonchi and decreased air movement in the right upper and middle lobes anterior and posterior, pulse oximetry 97% on room air not hypoxic. Patient is mildly dyspneic and mildly tachypneic ABD/GI: Normal bowel sounds; non-distended; soft, non-tender, no rebound, no guarding; no palpable organomegaly or masses. BACK: The back appears normal and is non-tender to palpation, there is no CVA tenderness EXT: Normal ROM in all joints; non-tender to palpation; no cyanosis, no effusions, no edema SKIN: Normal color for age and race; warm; dry; good turgor; no acute lesions noted NEURO: Moves all extremities equally; Motor and sensory function intact PSYCH: The patient's mood and manner are appropriate. Grooming and personal hygiene are appropriate. MDM: 58-year-old female appears mildly tachypneic and dyspneic but maintaining oxygenation by pulse ox. Will obtain screening labs, single view chest x-ray. She had PET scan yesterday that showed large mass in the right upper lobe and right middle lobe with metastasis into the bone. 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 IN LAST 30 DAYS: No - Related Data Allergies/Adverse Reactions: No Known Allergies Allergy (Verified 10/29/19 17:09) Past Medical History - Social History Smoking Status: Unknown if Ever Smoked Family History: Reviewed & Not Pertinent, CAD, Malignancy - Past Medical History Cardiac Medical History: Denies: Hx Atrial Fibrillation, Hx Coronary Artery Disease, Hx Heart Attack Pulmonary Medical History: Reports: Hx Pneumonia Denies: Hx Asthma Endocrine Medical History: Denies: Hx Diabetes Mellitus Type 2 Malignancy Medical History: Reports: Hx Lung Cancer GI Medical History: Denies: Hx Diverticulitis Musculoskeletal Medical History: Denies Hx Arthritis, Denies Hx Fibromyalgia Skin Medical History: Denies Hx Eczema, Denies Hx Psoriasis Psychiatric Medical History: Denies: Hx Depression Past Surgical History: Reports: Other - Right salpingectomy Physical Exam - Vital signs Vitals: Resp Pulse Ox 19 100 11/28/19 08:28 11/28/19 08:28 Course - Re-evaluation Re-evalutation: 11/28/19 10:26 Patient shows almost complete whiteout of the right lungs, stable effusion but increased congestion possible pneumonia likely related to an obstructive process. Likely malignant effusion, discussed with Dr. Ellis, Hematology. patient just started chemotherapy this week, on day three of Carboplatin and Etopicide. Recommends calling [facility] to discuss transfer of the patient given the shortness of breath complaint, patient's pulse oximetry is now 90% on room air will place her back on 2 L nasal cannula. 11/28/19 10:[address] Javed, Hematology at [facility]. He indicates that the size of the pleural effusion on the PET scan from 3 days ago does not support that patient would likely need transfer at this time especially with her oxygenation improving on nasal cannula. Likely needs thoracentesis and treatment for postobstructive pneumonia. I will speak with Dr. Ellis regarding our discussion. 11/28/19 10:[address] Ellis, Hematology. start Imipenum 1 gram IV now. Charge nurse have spoken with radiology they can do thoracentesis today if needed. Will speak with the hospitalist service for admission. 11/28/19 10:50 spoke with the hospitalist [facility] Case discussed with lead MD. Discussed with Dr. Colon, will accept admission. requests we schedule thoracentesis at this time if possible. - Vital Signs Vital signs: Temp Pulse Resp BP Pulse Ox 98 F 16 112/89 H 98 11/28/19 09:43 11/28/19 09:06 11/28/19 09:06 11/28/19 09:06 - Laboratory Result Diagrams: 11/28/19 09:17 11/28/19 09:17 Laboratory results interpreted by me: 11/28/19 11/28/19 09:17 09:17 RBC 3.53 L Hgb 10.6 L Hct 31.3 L [place] % (Auto) 2.6 L Seg Neutrophils % 82.8 H Sodium 136.0 L Carbon Dioxide 35 H Anion Gap 0 L BUN 25 H Total Protein 5.9 L Albumin 2.9 L Discharge - Discharge Clinical Impression: Hypoxia, Pleural effusion Metastatic lung cancer (metastasis from lung to other site) Qualifiers: Laterality: right Qualified Code(s): C34.91 - Malignant neoplasm of unspecified part of right bronchus or lung Pneumonia Qualifiers: Pneumonia type: due to unspecified organism Laterality: right Lung location: upper lobe of lung Qualified Code(s): J18.9 - Pneumonia, unspecified organism Condition: Stable Disposition: ADMITTED INPATIENT
[2019-11-28 09:34] LABS: ABSOLUTE LYMPHOCYTES (AUTO) 0.9 10^3/uL (0.5-4.7); ABSOLUTE MONOCYTES (AUTO) 0.2 10^3/uL (0.1-1.4); ABSOLUTE NEUT (AUTO) 5.4 10^3/uL (1.7-8.2); BASOPHILS % (AUTO) 0.2 % (0-2); EOSINOPHILS % (AUTO) 0.3 % (0-6); HEMATOCRIT 31.3 % (36.0-47.0); HEMOGLOBIN 10.6 g/dL (12.0-15.5); LYMPHOCYTES % (AUTO) 14.1 % (13-45); MEAN CORPUSCULAR HEMOGLOBIN 30.1 pg (27.0-33.4); MEAN CORPUSCULAR HGB CONC 33.9 g/dL (32.0-36.0); MEAN CORPUSCULAR VOLUME 89 fl (80-97); MONOCYTES % (AUTO) 2.6 % (3-13); PLATELET COUNT 327 10^3/uL (150-450); RED BLOOD COUNT 3.53 10^6/uL (3.72-5.28); RED CELL DISTRIBUTION WIDTH 12.8 % (11.5-14.0); SEGMENTED NEUTROPHILS % (AUTO) 82.8 % (42-78); TOTAL CELLS COUNTED % (AUTO) 100 %; WHITE BLOOD COUNT 6.5 10^3/uL (4.0-10.5)
[2019-11-28 09:50] LABS: INTERNATIONAL RATION (INR) 0.97; PROTHROMBIN TIME 12.9 SEC (11.4-15.4)
--- NOTE | 2019-11-28 09:50 | RADIOLOGY REPORT (SQ) ---
EXAM DESCRIPTION: CHEST SINGLE VIEW IMAGES COMPLETED DATE/TIME: 11/28/2019 9:30 am REASON FOR STUDY: sob COMPARISON: 11/16/2019 EXAM PARAMETERS: NUMBER OF VIEWS: One view. TECHNIQUE: Single frontal radiographic view of the chest acquired. RADIATION DOSE: NA LIMITATIONS: None. FINDINGS: LUNGS AND PLEURA: Complete opacification of the right upper hemithorax. There is worsenin g right basilar and perihilar consolidation. Grossly stable mild right effusion. Unremarkable left hemithorax. No pneumothorax. MEDIASTINUM AND HILAR STRUCTURES: Obscured right hilum and mediastinal contours. HEART AND VASCULAR STRUCTURES: Normal heart size. Right heart is obscured. BONES: No acute findings. HARDWARE: None in the chest. OTHER: No other significant finding. IMPRESSION: Persistent complete opacification of the right upper lobe. There has been interval incr eased right basilar and perihilar consolidation, possibly postobstructive atelectasis or pneumonia. Grossly stable mild right-sided effusion. TECHNICAL DOCUMENTATION: JOB ID: [id number] 2010 [employer]- All Rights Reserved Reading location - IP/workstation name: [email or web address]
[2019-11-28 10:02] LABS: ALBUMIN 2.9 g/dL (3.5-5.0); ALKALINE PHOSPHATASE 68 U/L (38-126); ASPARTATE AMINO TRANSFERASE 33 U/L (14-36); BILIRUBIN,TOTAL 0.2 mg/dL (0.2-1.3); BLOOD UREA NITROGEN 25 mg/dL (7-20); CALCIUM 8.5 mg/dL (8.4-10.2); CHLORIDE 101 mmol/L (98-107); GLUCOSE 87 mg/dL (75-110); POTASSIUM 4.8 mmol/L (3.6-5.0); TOTAL PROTEIN 5.9 g/dL (6.3-8.2)
[2019-11-28 10:07] LABS: CARBON DIOXIDE 35 mmol/L (22-30)
[2019-11-28 10:08] LABS: ANION GAP 0 (5-19)
[2019-11-28] MEDS ORDERED: IMIPENEM/CILASTATIN SODIUM INJ 500 MG VIAL IV ONE (10:58)
--- NOTE | 2019-11-28 14:37 | RADIOLOGY REPORT (SQ) ---
EXAM DESCRIPTION: CHEST SINGLE VIEW IMAGES COMPLETED DATE/TIME: 11/28/2019 2:27 pm REASON FOR STUDY: S/P RT THORACENTESIS COMPARISON: Same day ultrasound EXAM PARAMETERS: NUMBER OF VIEWS: One view. TECHNIQUE: Single frontal radiographic view of the chest acquired. RADIATION DOSE: NA LIMITATIONS: None. FINDINGS: LUNGS AND PLEURA: Mildly improved right basilar aeration post thoracentesis. No pneumotho rax. Unchanged extensive opacification throughout the right upper and mid hemithorax. Unremarkable left hemithorax. MEDIASTINUM AND HILAR STRUCTURES: Stable. HEART AND VASCULAR STRUCTURES: Stable. BONES: No acute findings. HARDWARE: None in the chest. OTHER: No other significant finding. IMPRESSION: Mildly improved right basilar aeration post thoracentesis. No pneumothorax. Grossly unchanged near complete opacification of the right upper and mid lung. TECHNICAL DOCUMENTATION: JOB ID: [id number] 2010 [employer]- All Rights Reserved Reading location - IP/workstation name: [email or web address]
--- NOTE | 2019-11-28 14:46 | RADIOLOGY REPORT (SQ) ---
EXAM DESCRIPTION: U/S THORACENTESIS WITH IMAGING IMAGES COMPLETED DATE/TIME: 11/28/2019 2:18 pm REASON FOR STUDY: pleural effusion, SOB COMPARISON: Same day radiograph LIMITATIONS: None. PROCEDURE: Procedure, risks, benefit, and alternative explained to patient who then gave written con sent. The posterior right chest wall was marked using ultrasound guidance. A time-out was called fo r correct marking verification. Chest prepped and draped using sterile technique. Local anesthesia a chieved using 10 ml of 1% lidocaine injection. A 6fr Safe-T- Centesis set was introduced into the [facility] pleural space. Fluid was aspirated. The catheter was removed and the entry site was covered wit h sterile bandage. No immediate complications noted. Images acquired during the procedure were stored on PACS. FINDINGS: ENTRY SITE: Posterior right chest FLUID VOLUME: 400 cc FLUID ANALYSIS: Straw-colored OTHER: Therapeutic only IMPRESSION: SUCCESSFUL THORACENTESIS USING ULTRASOUND GUIDANCE. COMMENT: Patient medication list reviewed: Yes- Quality ID# [id number]:Eligible professional attests to doc umenting in the medical record they obtained, updated, or reviewed the patient's current medications. TECHNICAL DOCUMENTATION: JOB ID: [id number] 2010 [employer]- All Rights Reserved Reading location - IP/workstation name: [email or web address]
[2019-11-28] MEDS ORDERED: IPRATROPIUM/ALBUTEROL 0.5-2.5 MG/3 ML AMPUL NEB ONE (14:51)
[2019-11-28] MEDS ORDERED: DEXAMETHASONE SOD PHOS INJ 10 MG/1 ML VIAL IV ONE (14:52)
[2019-11-28] MEDS ORDERED: IPRATROPIUM/ALBUTEROL 0.5-2.5 MG/3 ML AMPUL NEB PRN (14:59)
[2019-11-28] MEDS ORDERED: ACETAMINOPHEN 325 MG TABLET PO PRN (14:59)
[2019-11-28] MEDS ORDERED: ONDANSETRON 4 MG TAB.RAPDIS PO PRN (14:59)
[2019-11-28] MEDS ORDERED: MAGNESIUM HYDROXIDE SUSP 30 ML UDCUP PO PRN (14:59)
--- NOTE | 2019-11-28 15:04 | PDOC CRITICAL CARE PROG REPORT ---
General Date:: 11/28/19 Hospital Day:: 1 Resuscitation Status: Full Code Events in the past 12 to 24 Hours:: SOB, need for thoracentesis and probably treatment for COPD.- Review of systems relevant to events:: Respiratory Reason for ICU Addmission:: Evaluation. Seen before and after thoracentesis. - Medications: Medications reviewed and adjusted accordingly: Yes Vasopressors:: None Sedation:: None Physical Exam Vital Signs: Temp Pulse Resp BP Pulse Ox 98 F 16 112/89 H 93 11/28/19 09:43 11/28/19 09:06 11/28/19 09:06 11/28/19 09:12 General appearance: PRESENT: cooperative, mild distress, thin Head exam: PRESENT: atraumatic, normocephalic Eye exam: PRESENT: conjunctiva pink, EOMI, PERRLA. ABSENT: scleral icterus Ear exam: PRESENT: normal external ear exam Mouth exam: PRESENT: moist, tongue midline, other - Purse lip breathing Respiratory exam: PRESENT: accessory muscle use, decreased breath sounds - Decreased throughout more on R, prolonged expiratory phas Cardiovascular exam: PRESENT: RRR. ABSENT: diastolic murmur, rubs, systolic murmur GI/Abdominal exam: PRESENT: normal bowel sounds, soft. ABSENT: distended, guarding, mass, organolmegaly, rebound, tenderness Rectal exam: PRESENT: deferred Extremities exam: PRESENT: full ROM. ABSENT: calf tenderness, clubbing, pedal edema Neurological exam: PRESENT: alert, awake, oriented to person, oriented to place, oriented to time, oriented to situation, CN II-XII grossly intact. ABSENT: motor sensory deficit Psychiatric exam: PRESENT: appropriate affect, normal mood. ABSENT: homicidal ideation, suicidal ideation Skin exam: PRESENT: dry, intact, warm. ABSENT: cyanosis, rash Laboratory/Radiographs Laboratory Results: 11/28/19 09:17 11/28/19 09:17 11/28/19 11/28/19 09:17 09:17 WBC 6.5 RBC 3.53 L Hgb 10.6 L Hct 31.3 L MCV 89 MCH 30.1 MCHC 33.9 RDW 12.8 Plt Count 327 Seg Neutrophils % 82.8 H Sodium 136.0 L Potassium 4.8 Chloride 101 Carbon Dioxide 35 H Anion Gap 0 L BUN 25 H Creatinine 0.65 Est GFR ( Amer) > 60 Glucose 87 Calcium 8.5 Total Bilirubin 0.2 AST 33 Alkaline Phosphatase 68 Total Protein 5.9 L Albumin 2.9 L 11/28/19 11/28/19 09:17 09:17 Troponin I < 0.012 NT-Pro-B Natriuret Pep 601 H Impressions: Thoracentesis Ultrasound 11/28/19 00:00 IMPRESSION: SUCCESSFUL THORACENTESIS USING ULTRASOUND GUIDANCE. Chest X-Ray 11/28/19 09:12 IMPRESSION: Persistent complete opacification of the right upper lobe. There has been interval increased right basilar and perihilar consolidation, possibly postobstructive atelectasis or pneumonia. Grossly stable mild right-sided effusion. EKG: NSR All labs, radiographs, diagnostic studies and EKGs were personally reviewed: Yes In addition, reports of radiographic and diagnostic studies were read: Yes Assessment and Plan - Diagnosis (1) COPD (chronic obstructive pulmonary disease) Qualifiers: COPD type: emphysema Emphysema type: centrilobular Qualified Code(s): J43.2 - Centrilobular emphysema Is this a current diagnosis for this admission?: Yes Plan: She state "I dont have COPD, well not until this was found." My feeling is she has COPD and this needs trreatment with albuterol steroids and perhaps bipap. The onlu thing to offer is intubation which, right now, she does not need. Will reassess if this changes. (2) Metastatic lung cancer (metastasis from lung to other site) Qualifiers: Laterality: right Qualified Code(s): C34.91 - Malignant neoplasm of unspecified part of right bronchus or lung Is this a current diagnosis for this admission?: Yes Plan: This is a large St 4 tumor with resulting effusion. (3) Pleural effusion Is this a current diagnosis for this admission?: Yes Plan: Radiology drained 400cc which makes her feel better. But that is not a large ef fusion. I'll bet tumor and compressive atelectasis are bigger culprits. (4) Pneumonia Qualifiers: Pneumonia type: due to unspecified organism Laterality: right Lung location: upper lobe of lung Qualified Code(s): J18.9 - Pneumonia, unspecified organism Is this a current diagnosis for this admission?: Yes Plan: She may have a post obstructive PNA. But with no fever and WBC I do not believe this is a major finding but agree with antibiotics for now. Plan Summary: ICU not indicated at this time but if this changes reconsult. Critical Time Critical Time (minutes): 40 Level of Care: IMCU Anticipated discharge: Home Within: Other -: 1. The care of a critical patient is a dynamic process. This note is a novelties sales representative synopsis but static in nature. The timeframe for treatments given in order is not necessarily the actual time these treatments may have been done. 2. This patient requires critical care secondary to ongoing requirements for therapy not offered or safe outside the critical care environment. Transfer to a lower level of care will result in altered life or limb morbidity and mortality. 3. Multidisciplinary rounds completed. 4. ABCDE bundle addressed.
--- NOTE | 2019-11-28 15:36 | PDOC H&P ---
History of Present Illness Admission Date/PCP: 11/28/19 11:42 JULIANO CHAPMANDONALDBarb Patient complains of: Difficulty breathing and shortness of breath which started over the last 24 hours History of Present Illness: CHET DENNIS is a 58 year old female Patient presented to the emergency room with complaints of difficulty breathing and shortness of breath. She has a history of lung cancer. She was actually recently discharge on outside hospital due to acute respiratory failure. She presents here again today. She was just started on chemotherapy a few days ago. Last dose was 3 days ago. She says she was fine yesterday but woke up this morning with difficulty breathing. Patient was noted to be quite tachypneic in the emergency room. Chest x-ray noted a pleural effusion. I requested sorting livestock worker to assess patient first due to her breathing status. Nerissa taveras also had a thoracentesis done with removal of 400 mL of fluids. Patient was reevaluated by sorting livestock worker after thoracentesis and was felt that patient can be admitted to a non-ICU bed Past Medical History Cardiac Medical History: Denies: Atrial Fibrillation, Coronary Artery Disease, Myocardial Infarction Pulmonary Medical History: Reports: Pneumonia Denies: Asthma Endocrine Medical History: Denies: Diabetes Mellitus Type 2 Malignancy Medical History: Reports: Lung Cancer GI Medical History: Denies: Diverticulitis Musculoskeltal Medical History: Denies: Arthritis, Fibromyalgia Skin Medical History: Denies: Eczema, Psoriasis Psychiatric Medical History: Denies: Depression Hematology: Denies: Anemia, Bleeding Tendencies Past Surgical History Past Surgical History: Reports: Other - Right salpingectomy Social History Information Source: Patient Smoking Status: Unknown if Ever Smoked Electronic Cigarette use?: No Frequency of Alcohol Use: None Hx Recreational Drug Use: Yes Drugs: Marijuana Hx Prescription Drug Abuse: No - Advance Directive Resuscitation Status: Full Code Family History Family History: Reviewed & Not Pertinent, CAD, Malignancy Parental Family History Reviewed: No Children Family History Reviewed: Yes Sibling(s) Family History Reviewed.: Yes Medication/Allergy Home Medications: Dronabinol 5 mg PO Q12 11/28/19 Ondansetron HCl [Zofran 8 mg Tablet] 8 mg PO Q8HP PRN 11/28/19 Oxycodone HCl [Oxy-Ir 5 mg Tablet] 10 mg PO Q6HP PRN 11/28/19 Promethazine HCl [Phenergan 25 mg Tablet] 25 mg PO Q6HP PRN 11/28/19 Allergies/Adverse Reactions: No Known Allergies Allergy (Verified 10/29/19 17:09) Review of Systems ROS unobtainable: Other - Somewhat limited due to her respiratory status Constitutional: ABSENT: fever(s), headache(s) Cardiovascular: ABSENT: chest pain Respiratory: PRESENT: dyspnea Gastrointestinal: PRESENT: nausea, vomiting. ABSENT: abdominal pain, heartburn Physical Exam Vital Signs: Temp Pulse Resp BP Pulse Ox 98 F 16 112/89 H 93 11/28/19 09:43 11/28/19 09:06 11/28/19 09:06 11/28/19 09:12 General appearance: PRESENT: no acute distress, other - Chronically ill looking in mild respiratory distress with pursed lips Head exam: PRESENT: atraumatic, normocephalic Eye exam: PRESENT: conjunctiva pink, PERRLA. ABSENT: scleral icterus Ear exam: PRESENT: normal external ear exam Mouth exam: PRESENT: tongue midline Neck exam: ABSENT: carotid bruit, JVD, lymphadenopathy, thyromegaly Respiratory exam: PRESENT: decreased breath sounds, rhonchi, tachypnea, wheezes Cardiovascular exam: PRESENT: RRR, +S1, +S2. ABSENT: diastolic murmur, rubs, systolic murmur Vascular exam: PRESENT: normal capillary refill GI/Abdominal exam: PRESENT: normal bowel sounds, soft. ABSENT: distended, guarding, mass, organolmegaly, rebound, tenderness Rectal exam: PRESENT: deferred Extremities exam: PRESENT: full ROM. ABSENT: calf tenderness, clubbing, pedal edema Neurological exam: PRESENT: alert, awake, oriented to person, oriented to place, oriented to time, oriented to situation, CN II-XII grossly intact. ABSENT: motor sensory deficit Psychiatric exam: PRESENT: appropriate affect, normal mood. ABSENT: homicidal ideation, suicidal ideation Skin exam: PRESENT: dry, intact, warm. ABSENT: cyanosis, rash Results Laboratory Results: 11/28/19 09:17 11/28/19 09:17 11/28/19 11/28/19 09:17 09:17 WBC 6.5 RBC 3.53 L Hgb 10.6 L Hct 31.3 L MCV 89 MCH 30.1 MCHC 33.9 RDW 12.8 Plt Count 327 Seg Neutrophils % 82.8 H Sodium 136.0 L Potassium 4.8 Chloride 101 Carbon Dioxide 35 H Anion Gap 0 L BUN 25 H Creatinine 0.65 Est GFR ( Amer) > 60 Glucose 87 Calcium 8.5 Total Bilirubin 0.2 AST 33 Alkaline Phosphatase 68 Total Protein 5.9 L Albumin 2.9 L 11/28/19 11/28/19 09:17 09:17 Troponin I < 0.012 NT-Pro-B Natriuret Pep 601 H Impressions: Thoracentesis Ultrasound 11/28/19 00:00 IMPRESSION: SUCCESSFUL THORACENTESIS USING ULTRASOUND GUIDANCE. Chest X-Ray 11/28/19 09:12 IMPRESSION: Persistent complete opacification of the right upper lobe. There has been interval increased right basilar and perihilar consolidation, possibly postobstructive atelectasis or pneumonia. Grossly stable mild right-sided eff usion. Assessment and Plan - Diagnosis (1) Acute hypoxemic respiratory failure Is this a current diagnosis for this admission?: Yes Plan: Patient is currently on 2 L of oxygen. ABG is currently pending. She will be escalated to adjust for her hypoxemia depending on her clinical status. (2) COPD (chronic obstructive pulmonary disease) Qualifiers: COPD type: emphysema Emphysema type: centrilobular Qualified Code(s): J43.2 - Centrilobular emphysema Is this a current diagnosis for this admission?: Yes Plan: She state "I dont have COPD, well not until this was found." We will continue with steroids as well as bronchodilators (3) Metastatic lung cancer (metastasis from lung to other site) Qualifiers: Laterality: right Qualified Code(s): C34.91 - Malignant neoplasm of unspecified part of right bronchus or lung Is this a current diagnosis for this admission?: Yes Plan: This is a large Stage 4 tumor with resulting effusion. He may need further evaluation, possibly Pleurx catheter if this reaccumulate's (4) Pleural effusion Is this a current diagnosis for this admission?: Yes Plan: Radiology drained 400cc which makes her feel better. Continue with serial x- rays as needed (5) Pneumonia Qualifiers: Pneumonia type: due to unspecified organism Laterality: right Lung location: upper lobe of lung Qualified Code(s): J18.9 - Pneumonia, unspecified organism Is this a current diagnosis for this admission?: Yes Plan: She may well have a post obstructive PNA. But with no fever and WBC this is likely may be incidental. We will continue with empiric IV antibiotics for now (6) Protein calorie malnutrition Qualifiers: Protein-calorie malnutrition severity: moderate Qualified Code(s): E44.0 - Moderate protein-calorie malnutrition Is this a current diagnosis for this admission?: Yes Plan: Secondary to underlying malignancy - Time Time Spent with patient: 35 or more minutes Medications reviewed and adjusted accordingly: Yes Anticipated discharge: Home - Inpatient Certification Based on my medical assessment, after consideration of the patient's comorbidities, presenting symptoms, or acuity I expect that the services needed warrant INPATIENT care.: Yes Medical Necessity: Need for Nebulizer Therapy and Monitoring of Response, Risk of Complication if Not Cared For in Hospital
--- NOTE | 2019-11-28 17:13 | RADIOLOGY REPORT (SQ) ---
EXAM DESCRIPTION: CHEST SINGLE VIEW IMAGES COMPLETED DATE/TIME: 11/28/2019 4:52 pm REASON FOR STUDY: S/P RT THORACENTESIS COMPARISON: 11/28/2019. CT chest 11/17/2019. FINDINGS: One-view chest AP portable semi upright. Left lung remains clear. Minimally improved aeration right base. Extensive known mass occupies the upper lung field on the right. No pneumothorax appreciated. TECHNICAL DOCUMENTATION: JOB ID: [id number] Reading location - IP/workstation name: [email or web address]
[2019-11-28] MEDS: CEFEPIME 1 GM/D5W RTU 1 GM/50 ML RTUPB IV SCH (18:07)
[2019-11-28 19:35] LABS: ARTERIAL BLOOD BASE EXCESS 3.2 mmol/L; ARTERIAL BLOOD H2CO3 1.24 mmol/L (1.05-1.35); ARTERIAL BLOOD HCO3 27.5 mmol/L (20-24); ARTERIAL BLOOD O2 SATURATION 91.1 % (94-98); ARTERIAL BLOOD PCO2 41.1 mmHg (35-45); ARTERIAL BLOOD PH 7.44 (7.35-7.45); ARTERIAL BLOOD PO2 57.9 mmHg (80-100); ARTERIAL BLOOD TOTAL CO2 28.8 mmol/L (21-25)
[2019-11-28 19:38] LABS: ARTERIAL BLOOD FIO2 2L
[2019-11-28] MEDS: IPRATROPIUM/ALBUTEROL 0.5-2.5 MG/3 ML AMPUL NEB SCH (20:25)
[2019-11-28] MEDS: METHYLPREDNISOLONE INJ 40 MG/1 ML SDV IV SCH (21:05)
[2019-11-28] MEDS: OXYCODONE-ACETAMINOPHEN 5-325 MG TABLET PO PRN (21:05)
[2019-11-28] MEDS ORDERED: DRONABINOL 2.5 MG CAPSULE ONE (21:31)
[2019-11-28] MEDS ORDERED: DRONABINOL 5 MG PO SCH (22:00)
[2019-11-28] MEDS: DRONABINOL 2.5 MG CAPSULE PO SCH (22:00)
[2019-11-29] MEDS: IPRATROPIUM/ALBUTEROL 0.5-2.5 MG/3 ML AMPUL NEB SCH ×4 (01:38→20:31)
[2019-11-29 05:53] LABS: ABSOLUTE LYMPHOCYTES (AUTO) 0.3 10^3/uL (0.5-4.7); ABSOLUTE NEUT (AUTO) 4.9 10^3/uL (1.7-8.2); BASOPHILS % (AUTO) 0.4 % (0-2); HEMATOCRIT 28.5 % (36.0-47.0); LYMPHOCYTES % (AUTO) 5.3 % (13-45); MEAN CORPUSCULAR HEMOGLOBIN 30.5 pg (27.0-33.4); MEAN CORPUSCULAR HGB CONC 35.2 g/dL (32.0-36.0); MEAN CORPUSCULAR VOLUME 87 fl (80-97); MONOCYTES % (AUTO) 0.8 % (3-13); PLATELET COUNT 303 10^3/uL (150-450); RED BLOOD COUNT 3.29 10^6/uL (3.72-5.28); RED CELL DISTRIBUTION WIDTH 12.8 % (11.5-14.0); SEGMENTED NEUTROPHILS % (AUTO) 93.5 % (42-78); TOTAL CELLS COUNTED % (AUTO) 100 %; WHITE BLOOD COUNT 5.3 10^3/uL (4.0-10.5)
[2019-11-29] MEDS: CEFEPIME 1 GM/D5W RTU 1 GM/50 ML RTUPB IV SCH (06:02)
[2019-11-29] MEDS: METHYLPREDNISOLONE INJ 40 MG/1 ML SDV IV SCH (06:02)
[2019-11-29 06:17] LABS: BLOOD UREA NITROGEN 16 mg/dL (7-20); CALCIUM 8.7 mg/dL (8.4-10.2); CARBON DIOXIDE 29 mmol/L (22-30); CHLORIDE 102 mmol/L (98-107); GLUCOSE 122 mg/dL (75-110); POTASSIUM 5.1 mmol/L (3.6-5.0)
[2019-11-29 06:20] LABS: ANION GAP 5 (5-19)
[2019-11-29] MEDS: OXYCODONE-ACETAMINOPHEN 5-325 MG TABLET PO PRN ×2 (08:10→19:57)
[2019-11-29] MEDS: ENOXAPARIN SODIUM INJ 40 MG/0.4 ML DISP.SYRIN SUBCUT SCH (09:45)
[2019-11-29] MEDS: DOCUSATE SODIUM 100 MG CAPSULE PO SCH (09:45)
[2019-11-29] MEDS: DRONABINOL 2.5 MG CAPSULE PO SCH ×2 (09:57→21:26)
--- NOTE | 2019-11-29 11:14 | PDOC PROGRESS REPORT ---
Subjective Progress Note for:: 11/29/19 Reason For Visit: ACUTE RESPIRATORY FAILURE,LUNG CANCER,PNEUMONIA Patient feels better today in fact she is off oxygen and breathing is much improved. She did not require the use of BiPAP during the night Physical Exam Vital Signs: Temp Pulse Resp BP Pulse Ox 98.2 F 93 18 126/71 H 97 11/29/19 07:59 11/29/19 08:18 11/29/19 08:18 11/29/19 07:59 11/29/19 08:18 Intake & Output 11/28/19 11/29/19 11/30/19 06:59 06:59 06:59 Intake Total 766 Balance 766 Weight 44.7 kg General appearance: PRESENT: no acute distress, thin Neck exam: ABSENT: carotid bruit, tenderness Respiratory exam: PRESENT: decreased breath sounds, unlabored - A. ABSENT: tachypnea, wheezes - Diminished air entry upper lung R GI/Abdominal exam: PRESENT: normal bowel sounds, soft Rectal exam: PRESENT: deferred Neurological exam: PRESENT: alert, awake, oriented to person, oriented to place, oriented to time, oriented to situation, CN II-XII grossly intact. ABSENT: motor sensory deficit Psychiatric exam: PRESENT: appropriate affect Results Laboratory Results: 11/29/19 05:02 11/29/19 05:02 11/28/19 11/29/19 11/29/19 16:50 05:02 05:02 WBC 5.3 RBC 3.29 L Hgb 10.0 L Hct 28.5 L MCV 87 MCH 30.5 MCHC 35.2 RDW 12.8 Plt Count 303 Seg Neutrophils % 93.5 H Carbonic Acid 1.24 HCO3/H2CO3 Ratio 22:1 ABG pH 7.44 ABG pCO2 41.1 ABG pO2 57.9 L ABG HCO3 27.5 H ABG O2 Saturation 91.1 L ABG Base Excess 3.2 FiO2 2L Sodium 135.4 L Potassium 5.1 H Chloride 102 Carbon Dioxide 29 Anion Gap 5 BUN 16 Creatinine 0.50 L Est GFR ( Amer) > 60 Glucose 122 H Calcium 8.7 Magnesium 2.2 11/28/19 11/28/19 09:17 09:17 Troponin I < 0.012 NT-Pro-B Natriuret Pep 601 H Impressions: Thoracentesis Ultrasound 11/28/19 00:00 IMPRESSION: SUCCESSFUL THORACENTESIS USING ULTRASOUND GUIDANCE. Assessment and Plan - Diagnosis (1) Acute hypoxemic respiratory failure Is this a current diagnosis for this admission?: Yes Plan: Resolved, currently off Oxygen (2) COPD (chronic obstructive pulmonary disease) Qualifiers: COPD type: emphysema Emphysema type: centrilobular Qualified Code(s): J43.2 - Centrilobular emphysema Is this a current diagnosis for this admission?: Yes Plan: Improved, will change to oral Prednisone (3) Metastatic lung cancer (metastasis from lung to other site) Qualifiers: Laterality: right Qualified Code(s): C34.91 - Malignant neoplasm of unspecified part of right bronchus or lung Is this a current diagnosis for this admission?: Yes Plan: F/u as outpatient (4) Pleural effusion Is this a current diagnosis for this admission?: Yes Plan: Radiology drained 400cc which makes her feel better. Continue CXR in am Unfortunately it appears that the fluid was not sent for analysis no culture (5) Pneumonia Qualifiers: Pneumonia type: due to unspecified organism Laterality: right Lung location: upper lobe of lung Qualified Code(s): J18.9 - Pneumonia, unspecified organism Is this a current diagnosis for this admission?: Yes Plan: Little evidence of clinical pneumonia. Will change antibiotic to oral (6) Protein calorie malnutrition Qualifiers: Protein-calorie malnutrition severity: moderate Qualified Code(s): E44.0 - Moderate protein-calorie malnutrition Is this a current diagnosis for this admission?: Yes Plan: Secondary to underlying malignancy, cachexia of malignancy
[2019-11-29] MEDS: PREDNISONE 20 MG TABLET PO SCH (17:20)
[2019-11-30] MEDS: IPRATROPIUM/ALBUTEROL 0.5-2.5 MG/3 ML AMPUL NEB SCH ×2 (02:10→08:39)
[2019-11-30] MEDS: OXYCODONE-ACETAMINOPHEN 5-325 MG TABLET PO PRN (04:54)
--- NOTE | 2019-11-30 09:41 | RADIOLOGY REPORT (SQ) ---
EXAM DESCRIPTION: CHEST 2 VIEWS IMAGES COMPLETED DATE/TIME: 11/30/2019 9:24 am REASON FOR STUDY: F/u Pleural effusion COMPARISON: 11/28/2019 NUMBER OF VIEWS: Two view TECHNIQUE: Frontal and lateral radiographic images of the chest acquired. LIMITATIONS: None. FINDINGS: LUNGS AND PLEURA: Known large right upper lung mass. No pneumothorax status post right th oracentesis. Left lung is clear. MEDIASTINUM AND HILAR STRUCTURES: Stable heart size and mediastinal structures. HEART AND VASCULAR STRUCTURES: Stable appearance. BONES: No acute findings. HARDWARE: None in the chest. OTHER: No other significant finding. IMPRESSION: No significant change. No pneumothorax. TECHNICAL DOCUMENTATION: JOB ID: [id number] 2010 [employer]- All Rights Reserved Reading location - IP/workstation name: [email or web address]
[2019-11-30] MEDS ORDERED: LEVOFLOXACIN 500 MG TABLET PO SCH (10:00)
[2019-11-30] MEDS: PREDNISONE 20 MG TABLET PO SCH (10:08)
[2019-11-30] MEDS: DOCUSATE SODIUM 100 MG CAPSULE PO SCH (10:08)
[2019-11-30] MEDS: DRONABINOL 2.5 MG CAPSULE PO SCH (10:08)
[2019-11-30] MEDS: ENOXAPARIN SODIUM INJ 40 MG/0.4 ML DISP.SYRIN SUBCUT SCH (10:09)
--- NOTE | 2019-11-30 10:24 | EKG REPORT ---
SEVERITY:- OTHERWISE NORMAL ECG - SINUS RHYTHM LOW VOLTAGE IN FRONTAL LEADS : Confirmed by: Esme Nuon 30-Nov-2019 10:24:02
[2019-11-30 11:03] VITALS: BP 137/87
--- NOTE | 2019-11-30 15:55 | PDOC DISCHARGE SUMMARY ---
Impression - Admit/DC Date/PCP Admission Date/Primary Care Provider: 11/28/19 11:42 JULIANO WEBB Discharge Date: 11/30/19 - Discharge Diagnosis (1) Acute hypoxemic respiratory failure Is this a current diagnosis for this admission?: Yes (2) COPD (chronic obstructive pulmonary disease) Is this a current diagnosis for this admission?: Yes (3) Metastatic lung cancer (metastasis from lung to other site) Is this a current diagnosis for this admission?: Yes (4) Pleural effusion Is this a current diagnosis for this admission?: Yes (5) Pneumonia Is this a current diagnosis for this admission?: Yes (6) Protein calorie malnutrition Is this a current diagnosis for this admission?: Yes - Additional Information Resuscitation Status: Full Code Discharge Diet: Regular Discharge Activity: Activity As Tolerated Referrals: HARPER MCKEON MD [ACTIVE STAFF] - (FOllow up with your Oncologist as previously scheduled) Prescriptions: Ipratropium/Albuterol Sulfate [Combivent Respimat 4 gm Mdi] 1 puff IH Q6 PRN #1 aer.w.adap PRN Reason: For Wheezing Prednisone [Deltasone 20 mg Tablet] 40 mg PO DAILY #10 tablet Levofloxacin [Levaquin 500 mg Tablet] 500 mg PO DAILY #5 tablet Home Medications: Dronabinol 5 mg PO Q12 11/28/19 Ondansetron HCl [Zofran 8 mg Tablet] 8 mg PO Q8HP PRN 11/28/19 Oxycodone HCl [Oxy-Ir 5 mg Tablet] 10 mg PO Q6HP PRN 11/28/19 Promethazine HCl [Phenergan 25 mg Tablet] 25 mg PO Q6HP PRN 11/28/19 Ipratropium/Albuterol Sulfate [Combivent Respimat 4 gm Mdi] 1 puff IH Q6 PRN #1 aer.w.adap 11/30/19 Levofloxacin [Levaquin 500 mg Tablet] 500 mg PO DAILY #5 tablet 11/30/19 Prednisone [Deltasone 20 mg Tablet] 40 mg PO DAILY #10 tablet 11/30/19 History of Present Illiness History of Present Illness: CHET DENNIS is a 58 year old female Patient presented to the emergency room with complaints of difficulty breathing and shortness of breath. She has a history of lung cancer. She was actually recently discharge on outside hospital due to acute respiratory failure. She presents here again today. She was just started on chemotherapy a few days ago. Last dose was 3 days ago. She says she was fine yesterday but woke up this morning with difficulty breathing. Patient was noted to be quite tachypneic in the emergency room. Chest x-ray noted a pleural effusion. I requested renewable energy project manager to assess patient first due to her breathing status. Patient also had a thoracentesis done with removal of 400 mL of fluids. Patient was reevaluated by renewable energy project manager after thoracentesis and was felt that patient can be admitted to a non-ICU bed Hospital Course Hospital Course: Patient presented to the hospital in acute respiratory distress. She was found to have a right-sided pleural effusion. Patient has a known metastatic lung cancer. She was thought to have a possible postobstructive pneumonia however she had a normal white count and no real evidence of an acute infection. Patient had a thoracentesis done with removal of 400 mL of aspirate. Unfortunately this was not sent for analysis. Patient breathing rapidly improved after a thoracentesis and has continued to improve monitored in hospital. She was treated for possible COPD exacerbation and was also treated empirically with an antibiotic. Patient continued to improve. She has not required any oxygen assistance. She has been able to ambulate. She remains hemodynamically stable. At this time it is felt that she can be discharged home for outpatient follow-up Physical Exam Vital Signs: Temp Pulse Resp BP Pulse Ox 98.2 F 85 16 137/87 H 95 11/30/19 11:02 11/30/19 11:02 11/30/19 11:02 11/30/19 11:02 11/30/19 11:02 Intake & Output 11/29/19 11/30/19 12/01/19 06:59 06:59 06:59 Intake Total 766 1222 Balance 766 1222 Weight 44.7 kg 43.2 kg General appearance: PRESENT: no acute distress Head exam: PRESENT: atraumatic, normocephalic Eye exam: PRESENT: EOMI, PERRLA. ABSENT: scleral icterus Ear exam: PRESENT: normal external ear exam Mouth exam: PRESENT: moist, tongue midline Neck exam: ABSENT: carotid bruit, JVD, lymphadenopathy, thyromegaly Respiratory exam: PRESENT: clear to auscultation derrick, rhonchi - Few scattered. ABSENT: rales, wheezes Cardiovascular exam: PRESENT: RRR, +S1, +S2. ABSENT: diastolic murmur, rubs, systolic murmur GI/Abdominal exam: PRESENT: normal bowel sounds, soft. ABSENT: distended, guarding, mass, organolmegaly, rebound, tenderness Rectal exam: PRESENT: deferred Extremities exam: PRESENT: full ROM. ABSENT: calf tenderness, clubbing, pedal edema Neurological exam: PRESENT: alert, awake, oriented to person, oriented to place, oriented to time, oriented to situation, CN II-XII grossly intact. ABSENT: motor sensory deficit Psychiatric exam: PRESENT: appropriate affect, normal mood. ABSENT: homicidal ideation, suicidal ideation Skin exam: PRESENT: dry, intact, warm. ABSENT: cyanosis, rash Results Laboratory Results: WBC 5.3 10^3/uL (4.0-10.5) 11/29/19 05:02 RBC 3.29 10^6/uL (3.72-5.28) L 11/29/19 05:02 Hgb 10.0 g/dL (12.0-15.5) L 11/29/19 05:02 Hct 28.5 % (36.0-47.0) L 11/29/19 05:02 MCV 87 fl (80-97) 11/29/19 05:02 MCH 30.5 pg (27.0-33.4) 11/29/19 05:02 MCHC 35.2 g/dL (32.0-36.0) 11/29/19 05:02 RDW 12.8 % (11.5-14.0) 11/29/19 05:02 Plt Count 303 10^3/uL (150-450) 11/29/19 05:02 Lymph % (Auto) 5.3 % (13-45) L 11/29/19 05:02 Adams % (Auto) 0.8 % (3-13) L 11/29/19 05:02 Eos % (Auto) 0.0 % (0-6) 11/29/19 05:02 Baso % (Auto) 0.4 % (0-2) 11/29/19 05:02 Absolute Neuts (auto) 4.9 10^3/uL (1.7-8.2) 11/29/19 05:02 Absolute Lymphs (auto) 0.3 10^3/uL (0.5-4.7) L 11/29/19 05:02 Absolute Monos (auto) 0.0 10^3/uL (0.1-1.4) L 11/29/19 05:02 Absolute Eos (auto) 0.0 10^3/uL (0.0-0.6) 11/29/19 05:02 Absolute Basos (auto) 0.0 10^3/uL (0.0-0.2) 11/29/19 05:02 Seg Neutrophils % 93.5 % (42-78) H 11/29/19 05:02 PT 12.9 SEC (11.4-15.4) 11/28/19 09:17 INR 0.97 11/28/19 09:17 Carbonic Acid 1.24 mmol/L (1.05-1.35) 11/28/19 16:50 HCO3/H2CO3 Ratio 22:1 11/28/19 16:50 ABG pH 7.44 (7.35-7.45) 11/28/19 16:50 ABG pCO2 41.1 mmHg (35-45) 11/28/19 16:50 ABG pO2 57.9 mmHg (80-100) L 11/28/19 16:50 ABG HCO3 27.5 mmol/L (20-24) H 11/28/19 16:50 ABG Total CO2 28.8 mmol/L (21-25) H 11/28/19 16:50 ABG O2 Saturation 91.1 % (94-98) L 11/28/19 16:50 ABG Base Excess 3.2 mmol/L 11/28/19 16:50 FiO2 2L 11/28/19 16:50 Sodium 135.4 mmol/L (137-145) L 11/29/19 05:02 Potassium 5.1 mmol/L (3.6-5.0) H 11/29/19 05:02 Chloride 102 mmol/L (98-107) 11/29/19 05:02 Carbon Dioxide 29 mmol/L (22-30) 11/29/19 05:02 Anion Gap 5 (5-19) 11/29/19 05:02 BUN 16 mg/dL (7-20) 11/29/19 05:02 Creatinine 0.50 mg/dL (0.52-1.25) L 11/29/19 05:02 Est GFR ( Amer) > 60 (>60) 11/29/19 05:02 Est GFR (MDRD) Non-Af > 60 (>60) 11/29/19 05:02 Glucose 122 mg/dL (75-110) H 11/29/19 05:02 Calcium 8.7 mg/dL (8.4-10.2) 11/29/19 05:02 Magnesium 2.2 mg/dL (1.6-2.3) 11/29/19 05:02 Total Bilirubin 0.2 mg/dL (0.2-1.3) 11/28/19 09:17 Direct Bilirubin 0.0 mg/dL (0.0-0.4) 11/28/19 09:17 Neonat Total Bilirubin Not Reportable 11/28/19 09:17 Neonat Direct Bilirubin Not Reportable 11/28/19 09:17 Neonat Indirect Bili Not Reportable 11/28/19 09:17 AST 33 U/L (14-36) 11/28/19 09:17 ALT 14 U/L (<35) 11/28/19 09:17 Alkaline Phosphatase 68 U/L (38-126) 11/28/19 09:17 Troponin I < 0.012 ng/mL 11/28/19 09:17 NT-Pro-B Natriuret Pep 601 pg/mL (<125) H 11/28/19 09:17 Total Protein 5.9 g/dL (6.3-8.2) L 11/28/19 09:17 Albumin 2.9 g/dL (3.5-5.0) L 11/28/19 09:17 11/28/19 11/28/19 09:17 09:17 Troponin I < 0.012 NT-Pro-B Natriuret Pep 601 H Impressions: Chest X-Ray 11/28/19 00:00 IMPRESSION: Mildly improved right basilar aeration post thoracentesis. No pneumothorax. Grossly unchanged near complete opacification of the right upper and mid lung. Thoracentesis Ultrasound 11/28/19 00:00 IMPRESSION: SUCCESSFUL THORACENTESIS USING ULTRASOUND GUIDANCE. Chest X-Ray 11/28/19 09:12 IMPRESSION: Persistent complete opacification of the right upper lobe. There has been interval increased right basilar and perihilar consolidation, possibly postobstructive atelectasis or pneumonia. Grossly stable mild right-sided effusion. Chest X-Ray 11/30/19 08:00 IMPRESSION: No significant change. No pneumothorax. Plan Health Concerns: Follow-up with oncologist as per pre-hospitalization Time Spent: Less than 30 Minutes Stroke Is this a Stroke Patient?: No Acute Heart Failure - Is this a Heart Failure Patient?: No
== END 2019-11-30 11:46 | disposition home or self-care (01) | DRG 186 ==
LOC: ER 08:28 → EH 11:42 → ICU 16:19 → 3S 17:36
PROVIDERS: ADMIT Internal Medicine; ATTEND Internal Medicine
PROC: 0W993ZZ Drainage of Right Pleural Cavity, Percutaneous Approach (ICD-10-PCS; principal; 2019-11-28)
DX: J90 Pleural effusion, not elsewhere classified (principal); J96.01 Acute respiratory failure with hypoxia; J18.9 Pneumonia, unspecified organism; C79.51 Secondary malignant neoplasm of bone; E44.0 Moderate protein-calorie malnutrition; C78.01 Secondary malignant neoplasm of right lung; C34.92 Malignant neoplasm of unspecified part of left bronchus or lung; R64 Cachexia; J43.2 Centrilobular emphysema
CPT/HCPCS: 32555; 36415; 36600; 71045; 71046; 80048; 80053; 82803; 83735; 83880; 84484; 85025; 85610; 87040; 93005; 93010; 94640; 94660; 99285; A9270-GY; J0692; J0743; J1100; J1650; J2920; J7512; J7620; S0119

== ENCOUNTER 2019-12-04 10:26 | Outpatient (CLI) | payer SELFPAY ==
[~2019-12-04 10:26] MED LIST changes: -DEXAMETHASONE 10 MG in NS 50 ML IV PRN; +DEXAMETHASONE SOD PHOSPHATE 10 MG in NORMAL SALINE 50 ML IV PRN; -NORMAL SALINE 250 ML @ KVO IV PRN; +NORMAL SALINE 250 ML IV PRN
[2019-12-04 10:48] VITALS: BP 82/55
[2019-12-04 10:55] LABS: ABSOLUTE EOSINOPHILS # (AUTO) 0.1 10^3/uL (0.0-0.6); ABSOLUTE LYMPHOCYTES (AUTO) 0.8 10^3/uL (0.5-4.7); ABSOLUTE MONOCYTES (AUTO) 0.3 10^3/uL (0.1-1.4); BASOPHILS % (AUTO) 0.3 % (0-2); EOSINOPHILS % (AUTO) 1.1 % (0-6); HEMATOCRIT 28.8 % (36.0-47.0); HEMOGLOBIN 10.2 g/dL (12.0-15.5); LYMPHOCYTES % (AUTO) 15.2 % (13-45); MEAN CORPUSCULAR HEMOGLOBIN 30.1 pg (27.0-33.4); MEAN CORPUSCULAR HGB CONC 35.4 g/dL (32.0-36.0); MEAN CORPUSCULAR VOLUME 85 fl (80-97); MONOCYTES % (AUTO) 5.6 % (3-13); PLATELET COUNT 192 10^3/uL (150-450); RED BLOOD COUNT 3.38 10^6/uL (3.72-5.28); RED CELL DISTRIBUTION WIDTH 12.8 % (11.5-14.0); SEGMENTED NEUTROPHILS % (AUTO) 77.8 % (42-78); TOTAL CELLS COUNTED % (AUTO) 100 %; WHITE BLOOD COUNT 5.1 10^3/uL (4.0-10.5)
== END 2019-12-04 12:24 | disposition home or self-care (01) ==
LOC: II 10:26 → 5TH 10:32 → II 12:24
PROVIDERS: ATTEND Internal Medicine
DX: Z51.11 Encounter for antineoplastic chemotherapy (principal); C34.11 Malignant neoplasm of upper lobe, right bronchus or lung
CPT/HCPCS: 36415; 85025; 96413; 96367; J9181; J7040; J1100

== ENCOUNTER 2019-12-24 08:18 | Outpatient (CLI) | payer SELFPAY ==
[~2019-12-24 08:18] MED LIST changes: +ATEZOLIZUMAB 1,200 MG in NORMAL SALINE 250 ML IV PRN; +CARBOPLATIN IV PRN; +DENOSUMAB INJ/PF 120 MG/1.7 ML SDV SUBCUT PRN; +PALONOSETRON 0.25 MG/5 ML SDV IV PRN
[2019-12-24 08:26] VITALS: BP 109/72
[2019-12-24] MEDS ORDERED: DENOSUMAB 120 MG in SYRINGE, DISPOSABLE, 1 EACH SUBCUT PRN (09:36)
== END 2019-12-24 12:15 | disposition home or self-care (01) ==
LOC: II 08:18 → 5TH 08:21 → II 12:15
PROVIDERS: ATTEND Internal Medicine Hematology & Oncology
DX: Z51.11 Encounter for antineoplastic chemotherapy (principal); C34.11 Malignant neoplasm of upper lobe, right bronchus or lung; C79.51 Secondary malignant neoplasm of bone
CPT/HCPCS: 96413; 96367; 96372; 96375; 96417; J9045; J9181; J7050; J7040; J3490; J1100; J0897; J2469; J9022

== ENCOUNTER 2019-12-25 10:04 | Outpatient (CLI) | payer SELFPAY ==
[~2019-12-25 10:04] MED LIST changes: -ATEZOLIZUMAB 1,200 MG in NORMAL SALINE 250 ML IV PRN; -CARBOPLATIN IV PRN; -DENOSUMAB INJ/PF 120 MG/1.7 ML SDV SUBCUT PRN; -PALONOSETRON 0.25 MG/5 ML SDV IV PRN
[2019-12-25 10:17] VITALS: BP 99/72
== END 2019-12-25 12:28 | disposition home or self-care (01) ==
LOC: II 10:04 → 5TH 10:06 → II 12:28
PROVIDERS: ATTEND Internal Medicine Hematology & Oncology
DX: Z51.11 Encounter for antineoplastic chemotherapy (principal); C34.11 Malignant neoplasm of upper lobe, right bronchus or lung
CPT/HCPCS: 96413; 96367; J9181; J7040; J1100

== ENCOUNTER 2019-12-26 10:07 | Outpatient (CLI) | payer SELFPAY ==
[2019-12-26 10:16] VITALS: BP 92/77
== END 2019-12-26 12:01 | disposition home or self-care (01) ==
LOC: II 10:07 → 5TH 10:08 → II 12:01
PROVIDERS: ATTEND Internal Medicine Hematology & Oncology
DX: Z51.11 Encounter for antineoplastic chemotherapy (principal); C34.11 Malignant neoplasm of upper lobe, right bronchus or lung
CPT/HCPCS: 96413; 96367; J9181; J7040; J1100

== ENCOUNTER → 2020-01-09 | Outpatient (CLI) | payer SELFPAY ==
--- NOTE | 2020-01-09 09:33 | RADIOLOGY REPORT (SQ) ---
EXAM DESCRIPTION: CT CHEST WITH IMAGES COMPLETED DATE/TIME: 01/09/2020 8:20 am REASON FOR STUDY: LUNG CA (C34.11) C34.11 MALIGNANT NEOPLASM OF UPPER LOBE, RIGHT BRONCHUS OR L COMPARISON: CTs of the chest from 11/17/2019 and 10/29/2019. TECHNIQUE: CT scan of the chest performed using helical scanning technique with dynamic intravenous contrast injection. Images reviewed with lung, soft tissue and bone windows. Reconstructed coronal and sagittal MPR and MIP images reviewed. All images stored on PACS. All CT scanners at this facility use dose modulation, iterative reconstruction, and/or weight based d osing when appropriate to reduce radiation dose to as low as reasonably achievable (ALARA). [facility]: Dose Right [facility]: CareDose [facility]: Dose Right [facility]: Teradose 4D [facility]: [employer] CONTRAST TYPE AND DOSE: 50 mL Omnipaque 350- low osmolar. RENAL FUNCTION: Creatinine 0.5 milligrams/deciliter. LIMITATIONS: None. FINDINGS: LUNGS AND PLEURA: There is re- demonstration of abrupt truncation of the right superior lo bar bronchus. The heterogeneous mass in the right upper lobe that encases the hilar structures and e xtends to the pleura has decreased in size. The degree of mass effect of the mass upon the SVC has d ecreased. There is a 3 mm nodule in the right lower lobe (image 57 of series 6) that has also decrea sed in size (it measured 4 mm on the prior CT). The ill-defined nodular opacity in the posterior medi al aspect of the right lower lobe has in turn increased in size and it measures 18 x 11 mm compared t o 8 x 6 mm on the 11/17/2019 CT. There is no pleural effusion or pneumothorax. HILAR AND MEDIASTINAL STRUCTURES: The confluent mediastinal and hilar adenopathy has decreased in siz e ; for reference the sub- carinal lymph node on image 24 of series 2 measures 14 mm in short axis di ameter compared to 25 mm on the prior CT. 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 There is no thoracic aortic dissection. The thoracic ascending thoracic aorta measures 3.2 x 3.1 cm in trans verse diameter. There is no thoracic aortic dissection. There is mild atherosclerotic calcification of the coronary arteries. There is no cardiomegaly or pericardial effusion. HARDWARE: None in the chest. UPPER ABDOMEN: Refer to the separate report of the CT of the abdomen. THYROID AND OTHER SOFT TISSUES: The enlarged lymph nodes in the right supraclavicular fossa (images 3 and 9 of series 2) have also decreased in size ; for reference the right supraclavicular lymph node on image 3 of series 2 measures 17 mm in short axis diameter compared to 22 mm on the prior CT. BONES: No fracture or osseous lesion. OTHER: No other finding. IMPRESSION: 1. Interim decrease in the size of the right upper lobe mass and hilar, mediastinal and supraclavicular adenopathy. 2. Interim decrease in the size of the nodule in the right lower lobe (image 57 of series 6). 3. The ill-defined nodular opacity in the posteromedial aspect of the right lower lobe (image 55 of series 6) has increased in size, however compared to the CT from 11/17/2027 the opacity is more hetero geneous and less masslike. TECHNICAL DOCUMENTATION: JOB ID: [id number] Quality ID # [id number]: Final reports with documentation of one or more dose reduction techniques (e.g., Au tomated exposure control, adjustment of the mA and/or kV according to patient size, use of iterative reconstruction technique) 2010 [employer]- All Rights Reserved Reading location - IP/workstation name: [email or web address]
--- NOTE | 2020-01-09 09:56 | RADIOLOGY REPORT (SQ) ---
EXAM DESCRIPTION: CT ABD/PELVIS WITH IV ONLY IMAGES COMPLETED DATE/TIME: 01/09/2020 8:20 am REASON FOR STUDY: LUNG CA (C34.11) C34.11 MALIGNANT NEOPLASM OF UPPER LOBE, RIGHT BRONCHUS OR L COMPARISON: PET from 11/25/2019. TECHNIQUE: CT scan of the abdomen and pelvis performed using helical scanning technique with dynamic intravenous contrast injection. No oral contrast. Images reviewed with lung, soft tissue, and bone windows. Reconstructed coronal and sagittal MPR images reviewed. Delayed images for evaluation of the urinary system also acquired. All images stored on PACS. All CT scanners at this facility use dose modulation, iterative reconstruction, and/or weight based d osing when appropriate to reduce radiation dose to as low as reasonably achievable (ALARA). [facility]: Dose Right [facility]: CareDose [facility]: Dose Right [facility]: Teradose 4D [facility]: Admaxim CONTRAST TYPE AND DOSE: Contrast/concentration: Isovue 350.00 mg/ml; Total Contrast Delivered: 50.0 ml; Total Saline Delivered: 65.0 ml RENAL FUNCTION: Creatinine 0.65 milligrams/deciliter. RADIATION DOSE: CT Rad equipment meets quality standard of care and radiation dose reduction techniq ues were employed. CTDIvol: 4.4 - 4.5 mGy. DLP: 572 mGy-cm. LIMITATIONS: None. FINDINGS: LOWER CHEST: Refer to the separate report of the CT of the chest. LIVER: The morphology of the liver is noncirrhotic. There are multiple subcentimeter hypodense hepat ic lesions that are stable in size and number compared to the PET from 11/25/2019 ; in addition, the l esions demonstrated no abnormal FDG uptake on the correlative PET. The portal veins are patent. SPLEEN: No splenomegaly or splenic mass. PANCREAS: No acute abnormality of the pancreas. GALLBLADDER: No abnormality that is apparent on CT. ADRENAL GLANDS: No mass or asymmetry. RIGHT KIDNEY AND URETER: No solid mass, hydronephrosis, nephrolithiasis, hydroureter or ureterolithia sis. LEFT KIDNEY AND URETER: No solid mass, hydronephrosis, nephrolithiasis, hydroureter or ureterolithias is. AORTA AND VESSELS: No aneurysm of the abdominal aorta. The abdominopelvic vasculature is patent. RETROPERITONEUM: No retroperitoneal adenopathy, hemorrhage or mass. BOWEL AND PERITONEAL CAVITY: No bowel obstruction, bowel wall thickening or pericolonic/ perienteric inflammation. No mesenteric adenopathy, free intraperitoneal fluid or mesenteric/ omental inflammati on. APPENDIX: Unable to identify the appendix. There is no pericecal inflammation. PELVIS: There is no abnormality of the uterus or adnexa that is apparent on CT. The urinary bladder is distended and normal in appearance. ABDOMINAL WALL: No mass or hernia. BONES: Chronic fractures of the right ilium, right inferior pubic ramus and left inferior and superio r pubic rami. There is a Schmorl's node along the superior endplate of the L5 vertebral body. There is no lytic or sclerotic osseous lesion. OTHER: No other finding. IMPRESSION: No acute intra-abdominal abnormality. The subcentimeter hypodense hepatic lesions descr ibed above are unchanged in size and number compared to the PET from 11/25/2019 and based on the fact that the lesions demonstrated no abnormal FDG uptake on the correlative PET are favored to represent cysts. Continued attention on follow-up CTs is recommended. TECHNICAL DOCUMENTATION: JOB ID: [id number] Quality ID # [id number]: Final reports with documentation of one or more dose reduction techniques (e.g., Au tomated exposure control, adjustment of the mA and/or kV according to patient size, use of iterative reconstruction technique) 2010 [employer]- All Rights Reserved Reading location - IP/workstation name: [email or web address]
== END ==
LOC: RAD 07:52
PROVIDERS: ATTEND Physician Assistant Medical
DX: C34.11 Malignant neoplasm of upper lobe, right bronchus or lung (principal)
CPT/HCPCS: 71260; 74177

== ENCOUNTER 2020-01-14 08:21 | Outpatient (CLI) | payer SELFPAY ==
[~2020-01-14 08:21] MED LIST changes: +ATEZOLIZUMAB 1,200 MG in NORMAL SALINE 250 ML IV PRN; +CARBOPLATIN IV PRN; +DEXAMETHASONE 10 MG in NS 50 ML IV PRN; -DEXAMETHASONE SOD PHOSPHATE 10 MG in NORMAL SALINE 50 ML IV PRN; +NORMAL SALINE 250 ML @ KVO IV PRN; -NORMAL SALINE 250 ML IV PRN; +PALONOSETRON 0.25 MG/5 ML VIAL IV PRN
[2020-01-14 08:30] VITALS: BP 91/61
== END 2020-01-14 12:08 | disposition home or self-care (01) ==
LOC: II 08:21 → 5TH 08:49 → II 12:08
PROVIDERS: ATTEND Internal Medicine Hematology & Oncology
DX: Z51.11 Encounter for antineoplastic chemotherapy (principal); C34.11 Malignant neoplasm of upper lobe, right bronchus or lung
CPT/HCPCS: 96413; 96367; 96375; 96417; J9045; J9181; J7050; J7040; J1100; J2469; J9022

== ENCOUNTER 2020-01-15 09:46 | Outpatient (CLI) | payer SELFPAY ==
[~2020-01-15 09:46] MED LIST changes: -ATEZOLIZUMAB 1,200 MG in NORMAL SALINE 250 ML IV PRN; -CARBOPLATIN IV PRN; -PALONOSETRON 0.25 MG/5 ML VIAL IV PRN
[2020-01-15 09:55] VITALS: BP 107/76
== END 2020-01-15 11:30 | disposition home or self-care (01) ==
LOC: II 09:46 → 5TH 09:49 → II 11:30
PROVIDERS: ATTEND Internal Medicine
DX: Z51.11 Encounter for antineoplastic chemotherapy (principal); C34.11 Malignant neoplasm of upper lobe, right bronchus or lung
CPT/HCPCS: 96413; 96367; J9181; J7040; J1100

== ENCOUNTER 2020-01-16 09:54 | Outpatient (CLI) | payer SELFPAY ==
[2020-01-16 10:53] VITALS: BP 114/67
== END 2020-01-16 12:30 | disposition home or self-care (01) ==
LOC: II 09:54 → 5TH 09:57 → II 12:30
PROVIDERS: ATTEND Internal Medicine
DX: Z51.11 Encounter for antineoplastic chemotherapy (principal); C34.11 Malignant neoplasm of upper lobe, right bronchus or lung
CPT/HCPCS: 96413; 96367; J9181; J7040; J1100

== ENCOUNTER 2020-01-21 09:47 | Outpatient (CLI) | payer SELFPAY ==
[~2020-01-21 09:47] MED LIST changes: +DENOSUMAB 120 MG in SYRINGE, DISPOSABLE, 1 EACH SUBCUT PRN; -DEXAMETHASONE 10 MG in NS 50 ML IV PRN; -ETOPOSIDE IV PRN; -NORMAL SALINE 250 ML @ KVO IV PRN; -NORMAL SALINE IV PRN
[2020-01-21 09:56] VITALS: BP 118/76
== END 2020-01-21 10:14 | disposition home or self-care (01) ==
LOC: II 09:47 → 5TH 09:49 → II 10:14
PROVIDERS: ATTEND Internal Medicine
DX: Z51.11 Encounter for antineoplastic chemotherapy (principal); C34.11 Malignant neoplasm of upper lobe, right bronchus or lung; C79.51 Secondary malignant neoplasm of bone
CPT/HCPCS: 96372; J3490; J0897

== ENCOUNTER 2020-02-04 08:28 | Outpatient (CLI) | payer SELFPAY ==
[~2020-02-04 08:28] MED LIST changes: +ATEZOLIZUMAB 1,200 MG in NORMAL SALINE 250 ML IV PRN; +CARBOPLATIN IV PRN; -DENOSUMAB 120 MG in SYRINGE, DISPOSABLE, 1 EACH SUBCUT PRN; +DEXAMETHASONE 10 MG in NS 50 ML IV PRN; +ETOPOSIDE IV PRN; +NORMAL SALINE 250 ML IV PRN; +NORMAL SALINE IV PRN; +PALONOSETRON 0.25 MG/5 ML VIAL IV PRN
[2020-02-04 08:47] VITALS: BP 95/70
== END 2020-02-04 12:25 | disposition home or self-care (01) ==
LOC: II 08:28 → 5TH 08:46 → II 12:25
PROVIDERS: ATTEND Internal Medicine Hematology & Oncology
DX: Z51.11 Encounter for antineoplastic chemotherapy (principal); C34.11 Malignant neoplasm of upper lobe, right bronchus or lung
CPT/HCPCS: 96413; 96367; 96375; 96417; J9045; J9181; J7050; J7040; J1100; J2469; J9022

== ENCOUNTER 2020-02-05 10:21 | Outpatient (CLI) | payer MEDICAID ==
[~2020-02-05 10:21] MED LIST changes: -ATEZOLIZUMAB 1,200 MG in NORMAL SALINE 250 ML IV PRN; -CARBOPLATIN IV PRN; +NORMAL SALINE 250 ML @ KVO IV PRN; -NORMAL SALINE 250 ML IV PRN; -PALONOSETRON 0.25 MG/5 ML VIAL IV PRN
[2020-02-05 10:37] VITALS: BP 105/65
== END 2020-02-05 12:45 | disposition home or self-care (01) ==
LOC: II 10:21 → 5TH 10:22 → II 12:45
PROVIDERS: ATTEND Internal Medicine
DX: Z51.11 Encounter for antineoplastic chemotherapy (principal); C34.11 Malignant neoplasm of upper lobe, right bronchus or lung
CPT/HCPCS: 96413; 96367; J9181; J7040; J1100

== ENCOUNTER 2020-02-06 10:13 | Outpatient (CLI) | payer MEDICAID ==
[2020-02-06 10:33] VITALS: BP 108/69
== END 2020-02-06 12:35 | disposition home or self-care (01) ==
LOC: II 10:13 → 5TH 10:14 → II 12:35
PROVIDERS: ATTEND Internal Medicine
DX: Z51.11 Encounter for antineoplastic chemotherapy (principal); C34.11 Malignant neoplasm of upper lobe, right bronchus or lung
CPT/HCPCS: 96413; 96367; J9181; J7040; J1100

== ENCOUNTER → 2020-02-10 | Outpatient (CLI) | payer MEDICAID ==
--- NOTE | 2020-02-10 08:56 | RADIOLOGY REPORT (SQ) ---
EXAM DESCRIPTION: MRI THORACIC SPINE COMBO IMAGES COMPLETED DATE/TIME: 02/10/2020 8:32 am REASON FOR STUDY: LUNG CA (C34.11) C34.11 MALIGNANT NEOPLASM OF UPPER LOBE, RIGHT BRONCHUS OR L COMPARISON: Chest film 11/30/2019 CT abdomen pelvis 01/09/2020 PET-CT 11/25/2019 TECHNIQUE: Sagittal and Axial imaging includes T1, T2, STIR and gradient echo sequences. T1 post ga dolinium sequences. CONTRAST TYPE AND DOSE: 10 mL Prohance. RENAL FUNCTION: Not indicated. ACR Type II contrast agent associated with few, if any, unconfounded cases of NSF LIMITATIONS: None. FINDINGS: LOCALIZER: Massive amount of tumor throughout the upper half of the right chest, involving the right mediastinum and supraclavicular and paraspinal regions. No direct extension of tumor thro ugh neural foramina into the upper thoracic spinal canal ALIGNMENT: Normal. VERTEBRAE: Intact. BONE MARROW: Normal. No marrow replacement or reactive changes. HARDWARE: None in the spine. CORD: Normal in size and signal intensity. Conus at the T12-L1 level. No abnormal thoracic cord or conus enhancement THORACIC DISCS T1-T12: No significant spinal stenosis or exit foraminal stenosis. LOWER CERVICAL: Incompletely imaged. No significant spinal stenosis or exit foraminal stenosis. UPPER LUMBAR: Incompletely imaged. No significant spinal stenosis or exit foraminal stenosis. ENHANCEMENT: No abnormal thoracic spinal cord or nerve root enhancement. There is mild reactive fatt y degenerative vertebral body endplate change without contrast enhancement from T6-T11. OTHER: No other significant finding. IMPRESSION: No MR evidence of bony metastatic involvement from patient's lung tumor. No direct exte nsion of tumor through neural foramina into the spinal canal. No spinal cord masses or enhancement TECHNICAL DOCUMENTATION: JOB ID: [id number] 2010 [employer]- All Rights Reserved Reading location - IP/workstation name: [email or web address]
== END ==
LOC: RAD 07:34
PROVIDERS: ATTEND Physician Assistant Medical
DX: C34.11 Malignant neoplasm of upper lobe, right bronchus or lung (principal)
CPT/HCPCS: 72157; A9576

== ENCOUNTER 2020-02-18 10:05 | Outpatient (CLI) | payer MEDICAID ==
[~2020-02-18 10:05] MED LIST changes: +DENOSUMAB 120 MG in SYRINGE, DISPOSABLE, 1 EACH SUBCUT PRN; -DEXAMETHASONE 10 MG in NS 50 ML IV PRN; -ETOPOSIDE IV PRN; -NORMAL SALINE 250 ML @ KVO IV PRN; -NORMAL SALINE IV PRN
[2020-02-18 10:11] VITALS: BP 116/80
== END 2020-02-18 11:11 | disposition home or self-care (01) ==
LOC: II 10:05 → 5TH 10:27 → II 11:11
PROVIDERS: ATTEND Internal Medicine
DX: Z51.11 Encounter for antineoplastic chemotherapy (principal); C34.11 Malignant neoplasm of upper lobe, right bronchus or lung; C79.51 Secondary malignant neoplasm of bone
CPT/HCPCS: 96372; J3490; J0897

== ENCOUNTER → 2020-02-24 | Outpatient (CLI) | payer MEDICAID ==
--- NOTE | 2020-02-24 14:26 | RADIOLOGY REPORT (SQ) ---
EXAM DESCRIPTION: CT CHEST WITH; CT ABD/PELVIS WITH IV ONLY IMAGES COMPLETED DATE/TIME: 02/24/2020 10:42 am REASON FOR STUDY: MALIGNANT NEOPLASM OF UPPER LOBE, RIGHT BRONCHUS OR LUNG C34.11 MALIGNANT NEOPLAS M OF UPPER LOBE, RIGHT BRONCHUS OR L CONTRAST TYPE AND DOSE: contrast/concentration: Isovue 350.00 mmol/ml; Total Contrast Delivered: 49. 0 ml; Total Saline Delivered: 65.0 ml RENAL FUNCTION: BUN 13, creatinine 0.50 COMPARISON: CT chest abdomen and pelvis dated 01/09/2020 TECHNIQUE: CT scan of the chest performed using helical scanning technique with dynamic intravenous contrast injection. Images reviewed with lung, soft tissue and bone windows. Reconstructed coronal a nd sagittal MPR images reviewed. All images stored on PACS. All CT scanners at this facility use dose modulation, iterative reconstruction, and/or weight based d osing when appropriate to reduce radiation dose to as low as reasonably achievable (ALARA). [facility]: Dose Right [facility]: CareDose [facility]: Dose Right [facility]: Teradose 4D [facility]: [employer] RADIATION DOSE: CT Rad equipment meets quality standard of care and radiation dose reduction techniq ues were employed. CTDIvol: 4.4 - 4.5 mGy. DLP: 542 mGy-cm. . LIMITATIONS: None. FINDINGS: AXILLAE: No adenopathy. CHEST WALL: No masses. No subcutaneous air. LUNGS: Increasing size of the large right upper lobe mass. This occupies the majority of the right u pper lobe. PLEURA: Moderate right-sided pleural effusion new from prior study. THYROID: No masses or significant asymmetry. HILAR AND MEDIASTINAL STRUCTURES: Extensive right hilar and diffuse mediastinal adenopathy consistent with metastatic disease. The adenopathy encroaches on the right mainstem bronchus as well as segmen malinda and subsegmental branches. AORTA AND GREAT VESSELS: The SVC is markedly narrowed PULMONARY ARTERIES: No identified pulmonary emboli. Study not optimized for the pulmonary arteries. HEART: No pericardial effusion. HARDWARE AND LIFELINES: None. BONES: No significant finding. OTHER: No other significant finding. IMPRESSION: Significant increase in size of the right upper lobe mass as well as the mediastinal and right hilar adenopathy. There is a moderate right-sided pleural effusion. The mediastinal adenopat hy results in compression of the SVC. There is narrowing of the right mainstem bronchus as well as s egmental and subsegmental branches. COMPARISON: None. RADIATION DOSE: CT Rad equipment meets quality standard of care and radiation dose reduction techniq ues were employed. CTDIvol: 4.4 - 4.5 mGy. DLP: 542 mGy-cm. mGy. TECHNIQUE: CT scan of the abdomen and pelvis performed with intravenous and oral contrast using debbie iveth scanning technique with dynamic intravenous contrast injection. Images reviewed with lung, soft tissue and bone windows. Reconstructed coronal and sagittal MPR images reviewed. Delayed images for evaluation of the urinary system also acquired and evaluated. All images stored on PACS. All CT scanners at this facility use dose modulation, iterative reconstruction, and/or weight based d osing when appropriate to reduce radiation dose to as low as reasonably achievable (ALARA). [facility]: Dose Right [facility]: SureCare [facility]: Dose Right [facility]: Teradose 4D [facility]: [employer] FINDINGS: LIVER: There is a small amount of ascites. Small hepatic cysts are again noted. There is a focal area of decreased attenuation adjacent to the falciform ligament this could represent metast asis or focal fatty infiltration. The liver measures just over 16 cm in cranial caudal dimensions. SPLEEN: Normal size. No focal lesions. PANCREAS: No masses. No significant calcifications. No adjacent inflammation or peripancreatic flui d collections. Pancreatic duct not dilated. GALLBLADDER: No identified stones by CT criteria. No inflammatory changes to suggest cholecystitis. ADRENAL GLANDS: No significant masses or asymmetry. RIGHT KIDNEY AND URETER: No solid masses. No significant calcifications. No hydronephrosis or hyd roureter. LEFT KIDNEY AND URETER: No solid masses. No significant calcifications. No hydronephrosis or hydr oureter. AORTA AND VESSELS: Atherosclerotic change. No aneurysmal dilatation. RETROPERITONEUM: No retroperitoneal adenopathy, hemorrhage or masses. LARGE AND SMALL BOWEL: No obstruction. Evaluation is limited secondary to lack of oral contrast. APPENDIX: Not visualized. ABDOMINAL WALL: No hernia or masses. PERITONEAL CAVITY: No free air. No free fluid. No peritoneal implants or masses. PELVIS: No mass or free fluid. Normal bladder. BONES: Postsurgical oral or posttraumatic changes involving the right ilium. OTHER: No other significant finding. IMPRESSION: 1. Small amount of ascites. 2. Stable hepatic cysts. Small area of decreased attenuation adjacent to the falciform ligament is most consistent with focal fatty infiltration. TECHNICAL DOCUMENTATION: JOB ID: [id number] Quality ID # [id number]: Final reports with documentation of one or more dose reduction techniques (e.g., Au tomated exposure control, adjustment of the mA and/or kV according to patient size, use of iterative reconstruction technique) 2010 [employer]- All Rights Reserved Reading location - IP/workstation name: [email or web address]
== END ==
LOC: RAD 10:19
PROVIDERS: ATTEND Internal Medicine
DX: C34.11 Malignant neoplasm of upper lobe, right bronchus or lung (principal); J90 Pleural effusion, not elsewhere classified; K76.89 Other specified diseases of liver
CPT/HCPCS: 71260; 74177

== ENCOUNTER → 2020-03-04 | Day surgery (SDC) | payer MEDICAID ==
[~2020-03-04] MED LIST changes: -DENOSUMAB 120 MG in SYRINGE, DISPOSABLE, 1 EACH SUBCUT PRN; +FENTANYL CITRATE INJ/PF 100 MCG/2 ML AMPUL ONE
== END ==
LOC: RAD 09:30
PROVIDERS: ATTEND Internal Medicine
DX: R69 Illness, unspecified (principal)
CPT/HCPCS: J3010